=== PATIENT | female | born 1945 ===

== ENCOUNTER 2017-08-15 20:27 | Emergency (ER) | payer MEDICARE, MEDICAID ==
--- NOTE | 2017-08-15 22:19 | C.PDOC ---
History Of Present Illness Patient with a Hx of NIDDM presents to the ER with a complaint of a fever, cough , and right rib pain that worsens when coughing for the past few days that has been progressively worsening. Patient reports she has not taken anything for her symptoms. She is currently speaking in complete sentences, denies SOB, nausea, or vomiting. Time Seen by Provider: 08/15/17 22:18 Chief Complaint (Nursing): Fever History Per: Patient History/Exam Limitations: no limitations Onset/Duration Of Symptoms: Days Current Symptoms Are (Timing): Still Present Location Of Pain: None Sick Contacts (Context): None Associated Symptoms: Fever, Cough, Other (Right rib pain). denies: Nausea, Vomiting Ear Symptoms: Bilateral: None Recent travel outside of the [place]: No Past Medical History Reviewed: Historical Data, Nursing Documentation, Vital Signs Vital Signs: Last Vital Signs Temp 99 F 08/15/17 20:36 Pulse 113 H 08/15/17 20:36 Resp 18 08/15/17 20:36 BP 172/82 H 08/15/17 20:36 Pulse Ox 98 08/15/17 23:27 - Medical History PMH: Arthritis, HTN, Hypercholesterolemia Family History: States: No Known Family Hx - Social History Hx Alcohol Use: No Hx Substance Use: No - Immunization History Hx Tetanus Toxoid Vaccination: No Hx Influenza Vaccination: No Hx Pneumococcal Vaccination: No Review Of Systems Constitutional: Positive for: Fever Respiratory: Positive for: Cough. Negative for: Shortness of Breath Gastrointestinal: Negative for: Nausea, Vomiting Musculoskeletal: Positive for: Other (Right rib pain) Physical Exam - Physical Exam Appears: Non-toxic Skin: Warm, Dry Head: Normacephalic Oral Mucosa: Moist Chest: Symmetrical, No Tenderness Cardiovascular: Rhythm Regular Respiratory: No Rales, Rhonchi (Scattered), No Wheezing Gastrointestinal/Abdominal: Soft, No Tenderness Neurological/Psych: Oriented x3 ED Course And Treatment - Laboratory Results Result Diagrams: 08/15/17 22:44 08/15/17 22:44 ECG: Interpreted By Me, Viewed By Me ECG Rhythm: Sinus Rhythm (104), Nonspecific Changes O2 Sat by Pulse Oximetry: 98 Pulse Ox Interpretation: Normal Progress Note: Blood work, EKG, flu swab, CXR, and urinalysis ordered. Reevaluation Time: 23:40 Reassessment Condition: Improved Disposition Counseled Patient/Family Regarding: Studies Performed, Diagnosis, Need For Followup, Rx Given - Disposition Referrals: Leslie Rubio MD [Medical Doctor] - Disposition: HOME/ ROUTINE Disposition Time: 22:19 Condition: FAIR Additional Instructions: Please return if symptoms recur Prescriptions: Albuterol HFA [Ventolin HFA 90 mcg/actuation (8 g)] 2 puff IH [id number] #1 puff Ibuprofen [Motrin] 1 tab PO TID PRN #14 tab PRN Reason: Pain Instructions: Upper Respiratory Infection (ED) Forms: [employer] (Divehi) Print Language: CITIZEN OF [place] - Clinical Impression Clinical Impression: URI (upper respiratory infection) - Scribe Statement The provider has reviewed the documentation as recorded by the [facility] [place] All medical record entries made by the Scribe were at my direction and personally dictated by me. I have reviewed the chart and agree that the record accurately reflects my personal performance of the history, physical exam, medical decision making, and the department course for this patient. I have also personally directed, reviewed, and agree with the discharge instructions and disposition.
[2017-08-15 22:53] LABS: BASO # 0.1 K/uL (0.0-0.2); BASO % 1.5 % (0.0-2.0); EOS # 0.2 K/uL (0.0-0.7); EOS % 1.6 % (0.0-4.0); HEMOGLOBIN 13.6 g/dL (11.0-16.0); LYMPH # 3.4 K/uL (1.0-4.3); LYMPH % 34.5 % (20.0-40.0); MEAN CELL VOLUME 87.6 fL (81.0-99.0); MEAN CORPUSCULAR HEMOGLOBIN 29.3 pg (27.0-31.0); MEAN CORPUSCULAR HGB CONC 33.5 g/dL (33.0-37.0); MEAN PLATELET VOLUME 10.4 fL (7.2-11.7); MONO % 10.5 % (0.0-10.0); NEUT # 5.1 K/uL (1.8-7.0); NEUT % 51.9 % (50.0-75.0); RBC 4.64 Mil/uL (3.80-5.20); RED CELL DISTRIBUTION WIDTH 14.2 % (11.5-14.5); WHITE BLOOD COUNT 9.9 K/uL (4.8-10.8)
[2017-08-15 23:00] LABS: VENOUS BLOOD GAS BASE EXCESS 8.5 mmol/L (0.0-2.0); VENOUS BLOOD GAS PCO2 52 mmHg (40-60); VENOUS BLOOD GAS PO2 25 mm/Hg (30-55); VENOUS BLOOD PH 7.43 (7.32-7.43)
[2017-08-15 23:04] LABS: ALBUMIN 3.9 g/dL (3.5-5.0); ALT/SGPT 41 U/L (9-52); AST/SGOT 33 U/L (14-36); BLOOD UREA NITROGEN 16 mg/dL (7-17); CALCIUM 8.9 mg/dl (8.6-10.4); GFR AFRICAN-AMERICAN > 60; GFR NON-AFRICAN AMERICAN > 60
[2017-08-16 00:21] VITALS: BP 148/85; PULSE 84; RESP 20; TEMP 98.6; O2SAT 96
--- NOTE | 2017-08-16 11:49 | RAD ---
HISTORY: SOB COMPARISON: No prior. TECHNIQUE: Chest PA and lateral FINDINGS: LUNGS: No active pulmonary disease. PLEURA: No significant pleural effusion identified. No pneumothorax apparent. CARDIOVASCULAR: Normal. OSSEOUS STRUCTURES: No significant abnormalities. VISUALIZED UPPER ABDOMEN: Normal. OTHER FINDINGS: None. IMPRESSION: No active disease.
--- NOTE | 2017-08-18 07:10 | CARD ---
APPROVED REPORT EKG Measurement Heart [id number] OR [id number] [id number] <Conclusion> Sinus tachycardia Otherwise normal ECG
== END 2017-08-16 00:21 | disposition home or self-care (01) ==
LOC: C.ER 20:27
DX: J06.9 Acute upper respiratory infection, unspecified (principal)
CPT/HCPCS: 71046; 80053; 82803; 85025; 87804; 93005; 96374; 99284; J1885

== ENCOUNTER 2018-07-17 11:58 | Inpatient (IN) | payer MEDICARE, MEDICAID ==
[2018-07-17 12:08] VITALS: BMI 43.6
--- NOTE | 2018-07-17 12:09 | C.PDOC ---
History Of Present Illness 73 y/o female with history of HTN presents to ED with c/o left arm numbness developed 4 hours SEE WHEELER. Patient states she went to sleep at midnight without symptoms. This is the last time well. Patient reports 10 days of headache intermittently relieved with Tylenol. At ED patient denies motor weakness, facial droop, difficulty speaking, change in speech or any other complaints at this time. History Per: Patient History/Exam Limitations: no limitations Onset/Duration Of Symptoms: Hrs Current Symptoms Are (Timing): Still Present Past Medical History Reviewed: Historical Data, Nursing Documentation, Vital Signs - Medical History PMH: Arthritis, HTN, Hypercholesterolemia Surgical History: No Surg Hx Family History: States: No Known Family Hx - Social History Hx Alcohol Use: No Hx Substance Use: No - Immunization History Hx Tetanus Toxoid Vaccination: No Hx Influenza Vaccination: No Hx Pneumococcal Vaccination: No Review Of Systems Except As Marked, All Systems Reviewed And Found Negative. Cardiovascular: Negative for: Chest Pain Respiratory: Negative for: Cough, Shortness of Breath Neurological: Positive for: Numbness (left arm), Headache. Negative for: Change in Speech, Dizziness Physical Exam - Physical Exam Additional Physical Exam Comments: Constitutional: No acute distress. Head: Normocephalic. Atraumatic. Eyes: PERRL. ENT: Moist mucous membranes. Neck: Supple. Cardiovascular: Regular rate. Radial pulse 2+ bilaterally. Chest: No tenderness. Respiratory: Clear to auscultation bilaterally. GI: Soft. Nontender. Nondistended. Back: No CVA tenderness. Musculoskeletal: No tenderness or swelling of extremities. Skin: No rash. Neurologic: Alert, no focal deficit. 2-12 cranial nerves intact, L arm pronator drift, Sensation to light touch intact but subjectively decrease on left arm. ED Course And Treatment - Laboratory Results Result Diagrams: 07/17/18 12:25 07/17/18 12:25 O2 Sat by Pulse Oximetry: 100 (RA) Pulse Ox Interpretation: Normal NIHSS Stroke Scale - Date/Time Evaluation Performed Date Performed: 07/17/18 Time Performed: 12:10 When Was NIHSS Performed: Baseline - How Severe is the Stoke Level of Consciousness: 0=Alert LOC to Questions: 0=Both comments correct LOC to commands: 0=Obeys both correctly Best Gaze: 0=Normal Visual: 0=No visual loss Facial: 0=Normal Motor Arm - Left: 1=Drift noted before 10 sec Motor Arm - Right: 0=No drift Motor Leg - Left: 0=No drift Motor Leg - Right: 0=No drift Limb Ataxia: 0=Absent Sensory: 1=Mild to moderate loss Best Language: 0=No aphasia Dysarthia: 0=Normal articulation Extinction & Inattention (Neglect): 0=Normal, no object Score: 2 rTPA Inclusion/Exclusion - Refusal of Treatment Patient Refused Treatment: No - Inclusion Criteria for Altepase Patient is 18 years or Older: Yes Clinical DX Ischemic Stroke Cause Neurological Deficit: Yes Time of Onset Established Less Than 270 Mins Before TX Begin: No Risk/Benefit Discussed With Patient/Family Member Present: Yes Medical Decision Making Medical Decision Making: Plan: Code Stroke protocol, ECG, CXR ordered. Code stroke active 12:18pm CT Head w/o contrast (STROKE) IMPRESSION: No acute intracranial pathology identified. Incidental findings as above. Please note that MRI with diffusion imaging is more sensitive in the detection of acute ischemic event. Findings discussed with Dr. Hill on 07/17/18 at 12:37 p.m. CXR IMPRESSION: No active disease. No significant interval change compared to the prior examination(s). Dr. Matthew evaluated patient at bedside, recommends Plavix 300. Aspirin not ordered by me as patient reports anaphylaxis in the past. IVF at 100 cc/hr. Dr. Samaniego accepts patient to medical service. Disposition - Disposition Disposition: HOSPITALIZED Disposition Time: 12:20 Condition: GUARDED - POA Core Measure Indicators: Code Stroke - Clinical Impression Clinical Impression: CVA (cerebral vascular accident) - Scribe Statement The provider has reviewed the documentation as recorded by the [facility] [place] All medical record entries made by the [facility] were at my direction and personally dictated by me. I have reviewed the chart and agree that the record accurately reflects my personal performance of the history, physical exam, medical decision making, and the department course for this patient. I have also personally directed, reviewed, and agree with the discharge instructions and disposition.
[2018-07-17] MEDS ORDERED: Iodixanol 320 MG/ML 100 ML BOTTLE IV ONE (12:21)
[2018-07-17 12:36] LABS: BASO # 0.1 K/uL (0.0-0.2); BASO % 1.1 % (0.0-2.0); EOS # 0.1 K/uL (0.0-0.7); HEMOGLOBIN 13.8 g/dL (11.0-16.0); LYMPH # 2.6 K/uL (1.0-4.3); LYMPH % 28.1 % (20.0-40.0); MEAN CELL VOLUME 87.4 fL (81.0-99.0); MEAN CORPUSCULAR HEMOGLOBIN 28.4 pg (27.0-31.0); MEAN CORPUSCULAR HGB CONC 32.5 g/dL (33.0-37.0); MEAN PLATELET VOLUME 9.9 fL (7.2-11.7); MONO # 0.7 K/uL (0.0-0.8); MONO % 8.1 % (0.0-10.0); NEUT # 5.7 K/uL (1.8-7.0); NEUT % 61.7 % (50.0-75.0); NRBC % 0.1 % (0.0-2.0); RBC 4.85 Mil/uL (3.80-5.20); RED CELL DISTRIBUTION WIDTH 13.7 % (11.5-14.5); WHITE BLOOD COUNT 9.2 K/uL (4.8-10.8)
--- NOTE | 2018-07-17 12:47 | CT ---
Date of service: 07/17/2018 PROCEDURE: CT HEAD WITHOUT CONTRAST. HISTORY: Code Stroke, L arm numbness, headache COMPARISON: None available. TECHNIQUE: Axial computed tomography images were obtained through the head/brain without intravenous contrast. Radiation dose: Total exam DLP = 1183.74 mGy-cm. This CT exam was performed using one or more of the following dose reduction techniques: Automated exposure control, adjustment of the mA and/or kV according to patient size, and/or use of iterative reconstruction technique. FINDINGS: Streak artifact limits evaluation of the skull base. HEMORRHAGE: No intracranial hemorrhage. BRAIN: Diffuse atrophy with prominence of the ventricles and sulci noted. No mass effect or edema. Intracranial atherosclerosis. Scattered periventricular and subcortical white matter hypodensities, which are nonspecific, but often seen with chronic microvascular ischemic disease. Please note that MRI with diffusion imaging is more sensitive in the detection of acute ischemic event. VENTRICLES: No hydrocephalus. CALVARIUM: Unremarkable. PARANASAL SINUSES: Unremarkable as visualized. No significant inflammatory changes. MASTOID AIR CELLS: Unremarkable as visualized. No inflammatory changes. OTHER FINDINGS: None. IMPRESSION: No acute intracranial pathology identified. Incidental findings as above. Please note that MRI with diffusion imaging is more sensitive in the detection of acute ischemic event. Findings discussed with Dr. Hill on 07/17/18 at 12:37 p.m.
[2018-07-17 12:50] LABS: ALB/GLOB RATIO 1.2 (1.0-2.1); ALBUMIN 4.2 g/dL (3.5-5.0); ALT/SGPT 25 U/L (9-52); AST/SGOT 25 U/L (14-36); BLOOD UREA NITROGEN 15 mg/dL (7-17); CALCIUM 9.5 mg/dl (8.6-10.4); GFR NON-AFRICAN AMERICAN > 60; HDL CHOLESTEROL 56 mg/dL (30-70)
[2018-07-17 13:01] LABS: LDL CHOLESTEROL 128 mg/dL (0-129)
[2018-07-17] MEDS: Sodium Chloride 0.9% 1,000 ML IV SCH ×2 (13:15→21:25)
--- NOTE | 2018-07-17 13:33 | RAD ---
Date of service: 07/17/2018 HISTORY: Code Stroke COMPARISON: 08/15/2017 FINDINGS: LUNGS: No active pulmonary disease. PLEURA: No significant pleural effusion identified, no pneumothorax apparent. CARDIOVASCULAR: No radiographic findings to suggest acute or significant cardiovascular disease. Atherosclerotic calcifications identified primarily aortic arch. OSSEOUS STRUCTURES: No significant abnormalities. VISUALIZED UPPER ABDOMEN: Normal. OTHER FINDINGS: None. IMPRESSION: No active disease. No significant interval change compared to the prior examination(s).
--- NOTE | 2018-07-17 17:06 | CP.PCM.CON ---
History of Present Illness - History of Present Illness History of Present Illness: Neurology Consultation Note: Mrs. Styles is a 73-year-old woman, who was referred to me by the ED, with a past medical history of HTN, DM, HLD, and was last known normal last night, who woke up this morning with left hand weakness/numbness. Review of Systems - Constitutional Constitutional: As Per HPI - EENT Eyes: absent: As Per HPI, Blind Spots, Blurred Vision, Change in Vision, Decreased Night Vision, Diplopia, Discharge, Dry Eye, Exophthalmos, Floaters, Irritation, Itchy Eyes, Loss of Peripheral Vision, Pain, Photophobia, Requires Corrective Lenses, Sees Flashes, Spots in Vision, Tunnel Vision, Other Visual Disturbances, Loss of Vision, Other Ears: absent: As Per HPI, Decreased Hearing, Ear Discharge, Ear Pain, Tinnitus, Abnormal Hearing, Disequilibrium, Dizziness, Other Nose/Mouth/Throat: absent: As Per HPI, Epistaxis, Nasal Congestion, Nasal Discharge, Nasal Obstruction, Nasal Trauma, Nose Pain, Post Nasal Drip, Sinus Pain, Sinus Pressure, Bleeding Gums, Change in Voice, Dental Pain, Dry Mouth, Dysphagia, Halitosis, Hoarsness, Lip Swelling, Mouth Lesions, Mouth Pain, Odynophagia, Sore Throat, Throat Swelling, Tongue Swelling, Facial Pain, Neck Pain, Neck Mass, Other - Breasts Breasts: absent: As Per HPI, Change in Shape, Mass, Pain, Nipple Discharge, Nipple Inversion, Skin Changes, Swelling, Other - Cardiovascular Cardiovascular: absent: As Per HPI, Acrocyanosis, Chest Pain, Chest Pain at Rest, Chest Pain with Activity, Claudication, Diaphoresis, Dyspnea, Dyspnea on Exertion, Edema, Irregular Heart Rhythm, Pain Radiating to Arm/Neck/Jaw, Leg Edema, Leg Ulcers, Lightheadedness, Orthopnea, Palpitations, Paroxysmal Nocturnal Dyspnea, Pedal Edema, Radiating Pain, Rapid Heart Rate, Slow Heart Rate, Syncope, Other - Respiratory Respiratory: absent: As Per HPI, Cough, Dyspnea, Hemoptysis, Dyspnea on Exertion, Wheezing, Snoring, Stridor, Pain on Inspiration, Chest Congestion, Excessive Mucous Production, Change in Mucous Color, Pain with Coughing, Other - Gastrointestinal Gastrointestinal: absent: As Per HPI, Abdominal Pain, Belching, Bloating, Change in Bowel Habits, Change in Stool Character, Coffee Ground Emesis, Constipation, Cramping, Diarrhea, Dyspepsia, Dysphagia, Early Satiety, Excessive Flatus, Fecal Incontinence, Heartburn, Hematemesis, Hematochezia, Loose Stools, Melena, Nausea, Odynophagia, Temesmus, Vomiting, Other - Genitourinary Genitourinary: absent: As Per HPI, Change in Urinary Stream, Difficulty Urinating, Dysuria, Flank Pain, Hematuria, Pyuria, Nocturia, Urinary Incontinence, Urinary Frequency, Urinary Hesitance, Urinary Urgency, Voiding Freq/Small Amts, Freq UTI, Hx Renal/Bladder Calculi, Hx /Renal Surgery, Bladde r Distension, Other - Musculoskeletal Musculoskeletal: absent: As Per HPI, Abnormal Gait, Arthralgias, Atrophy, Back Pain, Deformity, Joint Swelling, Limited Range of Motion, Loss of Height, Muscle Cramps, Muscle Weakness, Myalgias, Neck Pain, Numbness, Radiating Pain into Limb, Stiffness, Tingling, Other - Integumentary Integumentary: absent: As Per HPI, Acne, Alopecia, Bleeding Lesions, Change in Hair, Change in Nails, Change in Pigmentation, Changing Lesions, Dry Skin, Erythema, Furuncle, Hirsutism, Lesions, New Lesions, Non-Healing Lesions, Photosensitivity, Pruritus, Rash, Skin Pain, Skin Ulcer, Sores, Striae, Swelling, Unusual Bruising, Wounds, Jaundice, Other - Neurological Neurological: As Per HPI - Endocrine Endocrine: absent: As Per HPI, Change in Body Appearance, Change in Libido, Cold Intolorance, Deepening of Voice, Excessive Sweating, Fatigue, Flushing, Heat Intolorance, Increase in Ring/Shoe/Hat Size, Palpitations, Polydipsia, Polyphagia, Polyuria, Other - Hematologic/Lymphatic Hematologic: absent: As Per HPI, Easy Bleeding, Easy Bruising, Lymphadenopathy, Other Past Patient History - Infectious Disease Hx of Infectious Diseases: None - Past Social History Smoking Status: Never Smoked - CARDIAC Hx Hypercholesterolemia: Yes Hx Hypertension: Yes - ENDOCRINE/METABOLIC Hx Endocrine Disorders: Yes Hx Diabetes Mellitus Type 2: Yes - MUSCULOSKELETAL/RHEUMATOLOGICAL Hx Arthritis: Yes - PSYCHIATRIC Hx Substance Use: No - SURGICAL HISTORY Hx Surgeries: Yes Other/Comment: left breast removal - ANESTHESIA Hx Anesthesia: Yes Hx Anesthesia Reactions: No Meds Allergies/Adverse Reactions: Allergies Allergy/AdvReac Type Severity Reaction Status Date / Time aspirin Allergy Verified 07/17/18 12:09 Penicillins Allergy Verified 07/17/18 12:09 morphine AdvReac Verified 05/13/17 04:26 - Medications Medications: Current Medications Sodium Chloride (Sodium Chloride 0.9%) 1,000 mls @ 100 mls/hr IV .Q10H DAMIEN Last Admin: 07/17/18 13:15 Dose: 100 mls/hr Physical Exam - Constitutional Appears: Well - Head Exam Head Exam: ATRAUMATIC, NORMAL INSPECTION, NORMOCEPHALIC - Eye Exam Eye Exam: EOMI, Normal appearance, PERRL Pupil Exam: NORMAL ACCOMODATION, PERRL - ENT Exam ENT Exam: Mucous Membranes Moist, Normal Exam - Neck Exam Neck exam: Positive for: Normal Inspection - Respiratory Exam Respiratory Exam: Clear to Auscultation Bilateral, NORMAL BREATHING PATTERN - Cardiovascular Exam Cardiovascular Exam: REGULAR RHYTHM - GI/Abdominal Exam GI & Abdominal Exam: Normal Bowel Sounds, Soft. absent: Tenderness - Rectal Exam Rectal Exam: Deferred - Extremities Exam Extremities exam: Positive for: normal inspection - Back Exam Back exam: NORMAL INSPECTION - Neurological Exam Neurological exam: Alert, CN II-XII Intact, Normal Gait, Oriented x3, Reflexes Normal Additional comments: Left arm pronator drift and minor sensory differences with NIHSS of 2. - Psychiatric Exam Psychiatric exam: Normal Affect, Normal Mood - Skin Skin Exam: Dry, Intact, Normal Color, Warm Results - Vital Signs Recent Vital Signs: Last Vital Signs Temp 98.5 F 07/17/18 12:10 Pulse 96 H 07/17/18 16:40 Resp 12 07/17/18 16:40 BP 180/86 H 07/17/18 16:40 Pulse Ox 98 07/17/18 16:40 - Labs Result Diagrams: 07/17/18 12:25 07/17/18 12:25 Labs: Laboratory Results - last 24 hr 07/17/18 07/17/18 07/17/18 12:25 12:25 12:25 WBC 9.2 RBC 4.85 Hgb 13.8 Hct 42.4 MCV 87.4 MCH 28.4 MCHC 32.5 L RDW 13.7 Plt Count 251 MPV 9.9 Neut % (Auto) 61.7 Lymph % (Auto) 28.1 Sumner % (Auto) 8.1 Eos % (Auto) 1.0 Baso % (Auto) 1.1 Neut # (Auto) 5.7 Lymph # (Auto) 2.6 Sumner # (Auto) 0.7 Eos # (Auto) 0.1 Baso # (Auto) 0.1 PT 11.0 INR 1.0 APTT 32 Sodium 135 Potassium 4.2 Chloride 99 Carbon Dioxide 25 Anion Gap 15 BUN 15 Creatinine 0.6 L Est GFR ( Amer) > 60 Est GFR (Non-Af Amer) > 60 Random Glucose 279 H Hemoglobin A1c Calcium 9.5 Total Bilirubin 0.5 AST 25 ALT 25 Alkaline Phosphatase 95 Troponin I < 0.0120 Total Protein 7.7 Albumin 4.2 Globulin 3.5 Albumin/Globulin Ratio 1.2 Triglycerides 175 H Cholesterol 219 H LDL Cholesterol Direct 128 HDL Cholesterol 56 Blood Type Antibody Screen 07/17/18 07/17/18 12:25 12:26 WBC RBC Hgb Hct MCV MCH MCHC RDW Plt Count MPV Neut % (Auto) Lymph % (Auto) Sumner % (Auto) Eos % (Auto) Baso % (Auto) Neut # (Auto) Lymph # (Auto) Sumner # (Auto) Eos # (Auto) Baso # (Auto) PT INR APTT Sodium Potassium Chloride Carbon Dioxide Anion Gap BUN Creatinine Est GFR ( Amer) Est GFR (Non-Af Amer) Random Glucose Hemoglobin A1c 10.5 H Calcium Total Bilirubin AST ALT Alkaline Phosphatase Troponin I Total Protein Albumin Globulin Albumin/Globulin Ratio Triglycerides Cholesterol LDL Cholesterol Direct HDL Cholesterol Blood Type O POSITIVE Antibody Screen Negative Assessment & Plan (1) CVA (cerebral vascular accident) Assessment and Plan: She is not a candidate for IV tPA due to being outside the 4.5 hour time window and her symptoms are minor. She may have had a lacunar infarct involving right basal ganglia. I recommend the followin. Telemetry. 2. MRI Brain without contrast and MRA head/neck without contrast. 3. Echocardiogram 4. Check hemoglobin A-1 C, lipid panel, ESR, CRP, MELISSA, B12, folate, TSH, vitamin D levels. 5. Aspirin 81 mg daily and load with Plavix 300 mg now. 6. Q 2 hour neuro-checks. 7. Statin for goal LDL less than 70. 8. Permissive hypertension, do not treat blood pressure less than 220/110 (may start to normalize 48-hours after symptom onset). 9. IV fluids normal saline at 100 mL per hour. Please do not hesitate to call back with any new developments, data updates or questions. Thank you for the opportunity to participate in the care of this patient. Status: Acute
--- NOTE | 2018-07-17 18:50 | CP.PCM.HP ---
History of Present Illness - History of Present Illness History of Present Illness: COMPREHENSIVE HISTORY & PHYSICAL EXAM HPI 73 years or woman with history of hypertension admitted with left upper extremity weakness. Patient went to bed last night and apparently healthy status woke up this morning with unable to move her left upper extremity. Patient also has a slight slurring of the speech according to the daughter. Patient was brought to the emergency room there was a slight weakness of the left upper extremity with no other deficits. As patient had passed the window of treatment for anti- thrombolytic patient was given regular anticoagulation. CAT scan of the head did not reveal any fresh infarct or bleed. Patient been complaining of a headache for the last 3 days. Patient has mul tiple medications at home and takes only a few of them. Patient has a history of hypertension diabetes and also had a similar neurological deficit was admitted in the hospital and has fully recovered. PAST HIST. PERSONAL HIST: Smoking. N Alcohol. N Allergy N Travel_- . FAMILY HIST : ROS : Constitutional: Negative for weight change, chills, night sweats, fatigue and u rama of assist device. Eyes: Negative for redness, swelling, itching, discharge, vision changes, blurry vision, double vision, glaucoma, cataracts, Ears: Negative for hearing loss, ringing, , tinnitus, vertigo Nose: Negative for rhinorrhea, stuffiness, sniffing, itching, postnasal drip, discoloration, nasal congestion and epistaxis. Throat: Negative for throat clearing, sore throat, hoarseness, difficulty swallowing and difficulty speaking. Respiratory: Negative for cough, chest tightness, sputum or phlegm, chronic cough, hemoptysis, wheezing, snoring at night, pleuritic chest pain and daytime somnolence. Cardiovascular: Negative for chest pain, palpitations, orthopnea, PND, Edema of legs, leg cramps, angina, claudication, , irregular heartbeat, Neurology: Negative for irritability, , seizures, tremors, migraines, slurred speech, syncope, memory loss, mood changes, recurrent headaches Gastrointestinal: Negative for difficulty swallowing, diarrhea, constipation, black stools, rectal bleeding, nausea, flatulence, reflux, poor appetite, changes in bowel habits, abdominal pain Genitourinary: Negative for frequent urination, hematuria, discharge, incontinence, urinary retention, frequent UTI, Psychiatric: Negative for depression, anxiety/panic, suicidal tendencies, Musculoskeletal: Negative for swollen joints, back pain, , neck pain, morning stiffness of joints, . Skin: Negative for rash, ulcers, itching, dry skin and pigmented lesions. P/E: Constitutional: Appears stated age and in no apparent distress. Head: Normocephalic. Ears: External ear canals patent without inflammation. Tympanic membranes intact with normal light reflex and landmark. Eyes: Pupils are central, bilaterally equal, symmetrical and reacts to light with normal movements and no icterus or pallor. Nose: External nares are patent. Mucosa is pink Mouth-Throat: Good general appearance and condition. No post-pharyngeal/oropharyngeal erythema and tonsillar hypertrophy. Good dental hygiene. Neck-Lymphatic: Neck is supple with normal ROM, no thyromegaly, lymph nodes or masses. JVD is normal with no carotid bruit. Lungs: Clear to percussion and auscultation with bilateral normal air entry. Cardiovascular: S1 and S2 are normal with no murmurs, gallops and rub. GI Exam: No hepatomegaly. Abdomen is soft and non-tender. No Organomegaly , masses or hernias are evident and bowel sounds are normal and active. Neurology: Higher function and all cranial nerves intact, sensory deficit. Superficial and deep reflexes are normal with downwards planters. No cerebellar deficit with normal gait. Mild left upper ext weakness Musculoskeletal: No tender spots with normal curvature of the spine with no swelling or restricted ROM of the small and large joints. Extremities: Homans sign absent. Intact pulses with no pitting edema, calf tenderness or skin color changes. Skin: No rash, eruptions or abnormal skin pigmentation LAB/RADIOLOGY: ASSESMENT : R. CVA HTN TYPE 2 DM PLAN. SEE ORDRES Present on Admission - Present on Admission Any Indicators Present on Admission: No Past Patient History - Infectious Disease Hx of Infectious Diseases: None - Past Social History Smoking Status: Never Smoked - CARDIAC Hx Hypercholesterolemia: Yes Hx Hypertension: Yes - ENDOCRINE/METABOLIC Hx Endocrine Disorders: Yes Hx Diabetes Mellitus Type 2: Yes - MUSCULOSKELETAL/RHEUMATOLOGICAL Hx Arthritis: Yes - PSYCHIATRIC Hx Substance Use: No - SURGICAL HISTORY Hx Surgeries: Yes Other/Comment: left breast removal - ANESTHESIA Hx Anesthesia: Yes Hx Anesthesia Reactions: No Meds Allergies/Adverse Reactions: Allergies Allergy/AdvReac Type Severity Reaction Status Date / Time aspirin Allergy Verified 07/17/18 12:09 Penicillins Allergy Verified 07/17/18 12:09 morphine AdvReac Verified 05/13/17 04:26 Results - Vital Signs Recent Vital Signs: Last Vital Signs Temp 98.5 F 07/17/18 12:10 Pulse 90 07/17/18 18:25 Resp 18 07/17/18 18:25 BP 171/75 H 07/17/18 18:25 Pulse Ox 98 07/17/18 18:25 - Labs Result Diagrams: 07/17/18 12:25 07/17/18 12:25 Labs: Laboratory Results - last 24 hr 07/17/18 07/17/18 07/17/18 12:25 12:25 12:25 WBC 9.2 RBC 4.85 Hgb 13.8 Hct 42.4 MCV 87.4 MCH 28.4 MCHC 32.5 L RDW 13.7 Plt Count 251 MPV 9.9 Neut % (Auto) 61.7 Lymph % (Auto) 28.1 [place] % (Auto) 8.1 Eos % (Auto) 1.0 Baso % (Auto) 1.1 Neut # (Auto) 5.7 Lymph # (Auto) 2.6 [place] # (Auto) 0.7 Eos # (Auto) 0.1 Baso # (Auto) 0.1 PT 11.0 INR 1.0 APTT 32 Sodium 135 Potassium 4.2 Chloride 99 Carbon Dioxide 25 Anion Gap 15 BUN 15 Creatinine 0.6 L Est GFR ( Amer) > 60 Est GFR (Non-Af Amer) > 60 Random Glucose 279 H Hemoglobin A1c Calcium 9.5 Total Bilirubin 0.5 AST 25 ALT 25 Alkaline Phosphatase 95 Troponin I < 0.0120 Total Protein 7.7 Albumin 4.2 Globulin 3.5 Albumin/Globulin Ratio 1.2 Triglycerides 175 H Cholesterol 219 H LDL Cholesterol Direct 128 HDL Cholesterol 56 Blood Type Antibody Screen 07/17/18 07/17/18 12:25 12:26 WBC RBC Hgb Hct MCV MCH MCHC RDW Plt Count MPV Neut % (Auto) Lymph % (Auto) [place] % (Auto) Eos % (Auto) Baso % (Auto) Neut # (Auto) Lymph # (Auto) [place] # (Auto) Eos # (Auto) Baso # (Auto) PT INR APTT Sodium Potassium Chloride Carbon Dioxide Anion Gap BUN Creatinine Est GFR ( Amer) Est GFR (Non-Af Amer) Random Glucose Hemoglobin A1c 10.5 H Calcium Total Bilirubin AST ALT Alkaline Phosphatase Troponin I Total Protein Albumin Globulin Albumin/Globulin Ratio Triglycerides Cholesterol LDL Cholesterol Direct HDL Cholesterol Blood Type O POSITIVE Antibody Screen Negative
[2018-07-17] MEDS: (Novolin R) Insulin Human Regular 100 units/ml vial SC SCH (21:11)
[2018-07-18] MEDS: (Novolin R) Insulin Human Regular 100 units/ml vial SC SCH ×4 (08:35→21:52)
[2018-07-18] MEDS ORDERED: Gadodiamide 287 mg/ml 20 ml IV ONE (09:22)
[2018-07-18] MEDS ORDERED: Home Med 1 UNIT (Linagliptin [Tradjenta] 5 MG) PO SCH (10:00)
[2018-07-18] MEDS: GlipiZIDE 10 mg SR Tab PO SCH ×2 (10:26→18:57)
--- NOTE | 2018-07-18 10:36 | MRI ---
Date of service: 07/18/2018 PROCEDURE: MRI BRAIN WITH AND WITHOUT CONTRAST HISTORY: STROKE COMPARISON: None available. TECHNIQUE: Multiplanar, multisequence MR images of the brain were obtained with and without intravenous contrast enhancement. FINDINGS: HEMORRHAGE: No acute parenchymal, subarachnoid or extra-axial hemorrhage. DWI: There are-subacute infarct changes seen in the subcortical and cortical regions of the right posterior temporoparietal as well as right superior posterior frontoparietal regions near the vertex.. Few faint areas of scattered cortical surface contrast enhancement about these infarct changes are also felt to be present. No significant mass-effect BRAIN PARENCHYMA: Mild chronic periventricular white matter ischemic changes are also seen extending peripherally into deep. ENHANCEMENT: As above. No enhancing parenchymal nor extra-axial masses.. VENTRICLES: No obstructive hydrocephalus. CRANIUM: Unremarkable. ORBITS: Orbits and contents grossly unremarkable.. PARANASAL SINUSES/MASTOIDS: Frontal sinuses are slightly underpneumatized hypoplastic unchanged from prior study. VASCULAR SYSTEM: Visualized major vascular flow voids at skull base patent. OTHER FINDINGS: None . IMPRESSION: There are small acute-subacute subcortical and cortical infarct changes seen in the right posterior temporoparietal watershed zone and superiorly in the right posterior frontoparietal region near the vertex. There also appears to be some minimal early cortical surface enhancement along these infarct changes.. No acute intracranial hemorrhage. Mild chronic white matter ischemic changes with suspected minor chronic brainstem ischemic changes as well. Note these findings were discussed with 6 tower Nurse Cardano at approximately 10:25 a.m. with written down and read back verification.
--- NOTE | 2018-07-18 11:51 | CARD ---
APPROVED REPORT Date of service: 07/17/2018 EKG Measurement Heart [id number] <Conclusion> Sinus rhythm with occasional premature ventricular complexes Otherwise normal ECG
--- NOTE | 2018-07-18 14:36 | CP.PCM.PN ---
Subjective - Date & Time of Evaluation Date of Evaluation: 07/18/18 Time of Evaluation: 14:33 - Subjective Subjective: CHIEF COMPLAINTS TODAY : Minimal weakness on the left upper extremities speech is normal alert oriented. ROS. HEENT : N. Resp : No cough, wheezing ,pleuritic CP ,or hemoptysis Cardio : No anginal CP, PND, orthopnea, palpitation GI : No abd.pain, n/v ,diarrhea or GI bleeding . FINAL TESTER : Left upper extremity numbness Musculoskel : No joint swelling , Derm : No rash Psych : Normal affect. Ext : No swelling ,calf pain PE. Pt. is alert awake in no distress. V.S As noted in the chart Head ,ear nose,throat and eyes : Normal. Neck : Supple with normal carotids. Lungs: Clear air entry. Heart : S1 & S2 normal with S4. No murmur. Abd : Soft non tender with normal bowel sounds. Neuro : Higher functions are normal and no facial nerve palsy. Left upper extremity shows mild weakness. Reflexes are normal Ext : No edema with intact pulses.Non tender calves Derm : No rashes or decubitus ulcer. LABS/RADIOLOGY: MRI shows acute and subacute infarct in the right cerebral hem isphere. Carotid Doppler shows right proximal internal carotid artery more than 75% lesion ASSESSMENT/PLAN : Continue present medications will add lisinopril for blood pressure. Vascular evaluation for left carotid endarterectomy Objective - Vital Signs/Intake and Output Vital Signs (last 24 hours): Temp Pulse Resp BP Pulse Ox 98.1 F 96 H 20 170/96 H 95 07/18/18 08:06 07/18/18 12:24 07/18/18 08:06 07/18/18 08:06 07/18/18 08:06 Intake and Output: 07/18/18 07/18/18 11:59 23:59 Intake Total 800 Balance 800 - Medications Medications: Current Medications Acetaminophen (Tylenol 325mg Tab) 650 mg PO Q4 PRN PRN Reason: Headache Last Admin: 07/17/18 21:24 Dose: 650 mg Aspirin (Ecotrin) 81 mg PO DAILY [facility] Last Admin: 07/18/18 12:49 Dose: 81 mg Clopidogrel Bisulfate (Plavix) 75 mg PO DAILY [facility] Last Admin: 07/18/18 12:49 Dose: 75 mg Ezetimibe (Zetia) 10 mg PO DAILY [facility] Last Admin: 07/18/18 10:26 Dose: 10 mg Glipizide (Glucotrol Xl) 10 mg PO BID [facility] Last Admin: 07/18/18 10:26 Dose: 10 mg Home Med (Linagliptin [Tradjenta]) 5 mg PO DAILY [facility] Sodium Chloride (Sodium Chloride 0.9%) 1,000 mls @ 100 mls/hr IV .Q10H [facility] Last Admin: 07/17/18 21:25 Dose: 100 mls/hr Insulin Human Regular (Novolin R) 0 unit SC ACHS [facility]; Protocol Last Admin: 07/18/18 12:44 Dose: 4 u Metformin HCl (Glucophage) 1,000 mg PO BIDCC [facility] Last Admin: 07/18/18 10:26 Dose: 1,000 mg Rosuvastatin Calcium (Crestor) 10 mg PO HS [facility] Last Admin: 07/17/18 21:23 Dose: 10 mg - Labs Labs: 07/17/18 12:25 07/17/18 12:25 PT 11.0 SECONDS (9.7-12.2) 07/17/18 12:25 INR 1.0 07/17/18 12:25 APTT 32 SECONDS (21-34) 07/17/18 12:25
--- NOTE | 2018-07-18 16:16 | CP.PCM.CON ---
History of Present Illness - History of Present Illness History of Present Illness: Vascular Surgery Consult note. Dr. Resendez service. CC: Carotid Stenosis 73yo F with PMH of HTN and DM, came to [facility] ED yesterday with complaint of LUE weakness and slurred speech. Reported her hands felt numb yesterday after waking up. She has been having symptoms of headache for past few days. She had one previous episode of headache years ago, for which she was admitted to [facility] [place] and received treatment. 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 She denies chest pain, palpitations, no nausea, vomiting, abdominal pain, diarrhea or constipation. PMHx: DM and HTN PSHx: Denies Social Hx: Denies tobacco, alcohol, and recreational drugs, currently lives with granddaughter Family Hx: Denies Allergies: Penicillin and ibuprofen Review of Systems - Review of Systems All systems: reviewed and no additional remarkable complaints except - Constitutional Constitutional: absent: Chills, Fever - EENT Eyes: absent: Blurred Vision, Change in Vision Ears: absent: Decreased Hearing Nose/Mouth/Throat: absent: Nasal Congestion - Cardiovascular Cardiovascular: absent: Chest Pain - Respiratory Respiratory: absent: Cough, Dyspnea - Gastrointestinal Gastrointestinal: absent: Abdominal Pain, Nausea, Vomiting - Genitourinary Genitourinary: absent: Difficulty Urinating - Integumentary Integumentary: absent: Erythema - Neurological Neurological: Focal Weakness, Headaches, Weakness Past Patient History - Infectious Disease Hx of Infectious Diseases: None - Past Medical History & Family History Past Medical History?: Yes Past Family History: Reviewed and not pertinent - Past Social History Smoking Status: Never Smoked - CARDIAC Hx Hypercholesterolemia: Yes Hx Hypertension: Yes - ENDOCRINE/METABOLIC Hx Endocrine Disorders: Yes Hx Diabetes Mellitus Type 2: Yes - MUSCULOSKELETAL/RHEUMATOLOGICAL Hx Arthritis: Yes - PSYCHIATRIC Hx Psychophysiologic Disorder: No Hx Substance Use: No - SURGICAL HISTORY Hx Surgeries: Yes Other/Comment: left breast removal - ANESTHESIA Hx Anesthesia: Yes Hx Anesthesia Reactions: No Meds Allergies/Adverse Reactions: Allergies Allergy/AdvReac Type Severity Reaction Status Date / Time aspirin Allergy Verified 07/17/18 12:09 Penicillins Allergy Verified 07/17/18 12:09 morphine AdvReac Verified 05/13/17 04:26 - Medications Medications: Current Medications Acetaminophen (Tylenol 325mg Tab) 650 mg PO Q4 PRN PRN Reason: Headache Last Admin: 07/18/18 14:43 Dose: 650 mg Aspirin (Ecotrin) 81 mg PO DAILY [facility] Last Admin: 07/18/18 12:49 Dose: 81 mg Clopidogrel Bisulfate (Plavix) 75 mg PO DAILY [facility] Last Admin: 07/18/18 12:49 Dose: 75 mg Ezetimibe (Zetia) 10 mg PO DAILY [facility] Last Admin: 07/18/18 10:26 Dose: 10 mg Glipizide (Glucotrol Xl) 10 mg PO BID [facility] Last Admin: 07/18/18 10:26 Dose: 10 mg Home Med (Linagliptin [Tradjenta]) 5 mg PO DAILY [facility] Sodium Chloride (Sodium Chloride 0.9%) 1,000 mls @ 100 mls/hr IV .Q10H [facility] Last Admin: 07/17/18 21:25 Dose: 100 mls/hr Insulin Human Regular (Novolin R) 0 unit SC ACHS [facility]; Protocol Last Admin: 07/18/18 12:44 Dose: 4 u Lisinopril (Zestril) 20 mg PO DAILY [facility] Last Admin: 07/18/18 14:51 Dose: 20 mg Metformin HCl (Glucophage) 1,000 mg PO BIDCC [facility] Last Admin: 07/18/18 10:26 Dose: 1,000 mg Rosuvastatin Calcium (Crestor) 10 mg PO HS [facility] Last Admin: 07/17/18 21:23 Dose: 10 mg Physical Exam - Constitutional Appears: Well, Non-toxic, No Acute Distress - Head Exam Head Exam: ATRAUMATIC, NORMAL INSPECTION, NORMOCEPHALIC - Eye Exam Eye Exam: EOMI, Normal appearance. absent: Scleral icterus - ENT Exam ENT Exam: Mucous Membranes Moist, Normal Exam - Neck Exam Neck exam: Positive for: Normal Inspection Additional comments: No audible bruits - Respiratory Exam Respiratory Exam: NORMAL BREATHING PATTERN. absent: Accessory Muscle Use, Respiratory Distress - Cardiovascular Exam Cardiovascular Exam: RRR. absent: JVD - GI/Abdominal Exam GI & Abdominal Exam: Soft. absent: Bruit, Distended, Firm, Guarding, Rebound, Rigid, Tenderness - Extremities Exam Extremities exam: Positive for: normal inspection. Negative for: calf tenderness - Back Exam Back exam: NORMAL INSPECTION - Neurological Exam Neurological exam: Alert, Oriented x3 - Psychiatric Exam Psychiatric exam: Normal Affect, Normal Mood - Skin Skin Exam: Dry, Intact, Normal Color, Warm Results - Vital Signs Recent Vital Signs: Last Vital Signs Temp 98.1 F 07/18/18 08:06 Pulse 96 H 07/18/18 12:24 Resp 20 07/18/18 08:06 BP 170/96 H 07/18/18 08:06 Pulse Ox 95 07/18/18 08:06 - Labs Result Diagrams: 07/17/18 12:25 07/17/18 12:25 Labs: Laboratory Results - last 24 hr 07/17/18 07/17/18 07/18/18 12:06 21:05 06:30 POC Glucose (mg/dL) 286 H 271 H 215 H 07/18/18 11:42 POC Glucose (mg/dL) 256 H Assessment & Plan - Assessment and Plan (Free Text) Assessment: 73yo F with Right proximal carotid stenosis - Carotid Duplex US noted Plan: - Continue medical management - f/u CT Angio of neck as ordered - Possible candidate for carotid endarterectomy - further recs after we follow up studies as ordered Further recs as per Dr. Mal Leung PGY2 Surgery
[2018-07-18] MEDS ORDERED: Magnesium Sulfate 1 gm in D5W 1 GM/100 ML BAG IVPB ONE (17:40)
--- NOTE | 2018-07-18 17:41 | CP.PCM.PN ---
<Estrella Cardenas - Last Filed: 07/18/18 22:11> Subjective - Date & Time of Evaluation Date of Evaluation: 07/18/18 Time of Evaluation: 17:00 - Subjective Subjective: Neurology Consultation Follow-Up Note: Mrs. Styles was evaluated today at bedside with Dr. Matthew. Family at bedside. She is still complaining of left arm weakness and a headache that she describes is "10/10". She denies having palpitation or shortness of breath prior to her having left arm weakness/numbness yesterday. She currently denies dizziness, visual changes, chest pain, shortness of breath, n/v/d. Objective - Vital Signs/Intake and Output Vital Signs (last 24 hours): Temp Pulse Resp BP Pulse Ox 98.1 F 96 H 20 170/96 H 95 07/18/18 08:06 07/18/18 12:24 07/18/18 08:06 07/18/18 08:06 07/18/18 08:06 Intake and Output: 07/18/18 07/18/18 06:59 18:59 Intake Total 800 Balance 800 - Medications Medications: Current Medications Acetaminophen (Tylenol 325mg Tab) 650 mg PO Q4 PRN PRN Reason: Headache Last Admin: 07/18/18 14:43 Dose: 650 mg Aspirin (Ecotrin) 81 mg PO DAILY [facility] Last Admin: 07/18/18 12:49 Dose: 81 mg Clopidogrel Bisulfate (Plavix) 75 mg PO DAILY [facility] Last Admin: 07/18/18 12:49 Dose: 75 mg Ezetimibe (Zetia) 10 mg PO DAILY [facility] Last Admin: 07/18/18 10:26 Dose: 10 mg Glipizide (Glucotrol Xl) 10 mg PO BID [facility] Last Admin: 07/18/18 10:26 Dose: 10 mg Home Med (Linagliptin [Tradjenta]) 5 mg PO DAILY [facility] Sodium Chloride (Sodium Chloride 0.9%) 1,000 mls @ 100 mls/hr IV .Q10H [facility] Last Admin: 07/17/18 21:25 Dose: 100 mls/hr Insulin Human Regular (Novolin R) 0 unit SC ACHS [facility]; Protocol Last Admin: 07/18/18 12:44 Dose: 4 u Lisinopril (Zestril) 20 mg PO DAILY [facility] Last Admin: 07/18/18 14:51 Dose: 20 mg Metformin HCl (Glucophage) 1,000 mg PO BIDCC [facility] Last Admin: 07/18/18 10:26 Dose: 1,000 mg Rosuvastatin Calcium (Crestor) 10 mg PO HS [facility] Last Admin: 07/17/18 21:23 Dose: 10 mg - Labs Labs: 07/17/18 12:25 07/17/18 12:25 PT 11.0 SECONDS (9.7-12.2) 07/17/18 12:25 INR 1.0 07/17/18 12:25 APTT 32 SECONDS (21-34) 07/17/18 12:25 - Constitutional Appears: Well, Non-toxic, No Acute Distress - Head Exam Head Exam: ATRAUMATIC, NORMAL INSPECTION, NORMOCEPHALIC - Eye Exam Eye Exam: EOMI, Normal appearance - ENT Exam ENT Exam: Mucous Membranes Moist - Neck Exam Neck Exam: Full ROM, Normal Inspection - Respiratory Exam Respiratory Exam: NORMAL BREATHING PATTERN - Extremities Exam Extremities Exam: Normal Inspection Additional comments: decreased ROM noted to LUE - Neurological Exam Neurological Exam: Alert, Awake, CN II-XII Intact, Oriented x3, Reflexes Normal Neuro motor strength exam: Left Upper Extremity: 3, Right Upper Extremity: 4 Additional comments: Speech clear and fluid; aao +pronator drift to LUE weakness noted 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 There also appears to be some minimal early cortical surface enhancement along these infarct changes.. No acute intracranial hemorrhage. Mild chronic white matter ischemic changes with suspected minor chronic brainstem ischemic changes as well. -CT Head (07/17/18): No acute intracranial pathology identified. -Mag sulfate 1gm IV and Decadron 10mg IV both x1 dose for h/a relief -CTA Head and Neck done--results pending -ECHO pending -Carotid Doppler done--prelim results show severe right proximal carotid stenosis---Dr. Resendez consulted; pt possible endarterectomy candidate per surgical team's notes. -PT/OT/SL -Continue asa, plavx, statin -SCD's -Notify neuro team of acute changes. -We will continue to follow the pt. Discussed with Dr. Matthew Status: Acute <Demian Matthew - Last Filed: 07/26/18 18:24> Objective - Vital Signs/Intake and Output Vital Signs (last 24 hours): Temp Pulse Resp BP Pulse Ox 98.8 F 90 17 158/75 H 96 07/26/18 12:00 07/26/18 12:00 07/26/18 12:00 07/26/18 12:00 07/26/18 12:00 Intake and Output: 07/26/18 07/26/18 06:59 18:59 Intake Total 240 200 Output Total 250 450 Balance -10 -250 - Labs Labs: 07/26/18 06:09 07/26/18 06:09 PT 11.8 SECONDS (9.7-12.2) 07/23/18 07:20 INR 1.1 07/23/18 07:20 APTT 32 SECONDS (21-34) 07/23/18 07:20 Assessment and Plan (1) CVA (cerebral vascular accident) Status: Acute Attending/Attestation - Attestation I have personally seen and examined this patient.: Yes I have fully participated in the care of the patient.: Yes I have reviewed all pertinent clinical information, including history, physical exam and plan: Yes Notes (Text): 07/26/18 18:24 I agree with the assessment and plan. Will continue current management.
[2018-07-18] MEDS ORDERED: Iodixanol 320 MG/ML 100 ML BOTTLE IV ONE (17:50)
[2018-07-18] MEDS: Sodium Chloride 0.9% 1,000 ML IV SCH (19:02)
[2018-07-19] MEDS: Sodium Chloride 0.9% 1,000 ML IV SCH (05:30)
[2018-07-19] MEDS: (Novolin R) Insulin Human Regular 100 units/ml vial SC SCH ×4 (08:32→22:45)
[2018-07-19] MEDS: GlipiZIDE 10 mg SR Tab PO SCH ×2 (11:02→18:00)
--- NOTE | 2018-07-19 12:10 | CT ---
Date of service: 07/18/2018 PROCEDURE: CT Angiography of the neck with contrast HISTORY: eval R ICA stenosis COMPARISON: Carotid duplex Doppler ultrasound from 07/18/2018 TECHNIQUE: Contiguous axial images of the neck were obtained from the level of the skull-base to the superior mediastinum in the arteriographic phase of enhancement. Coronal and sagittal reformats or also generated. IV contrast dose: 100 cc Visipaque 320 Radiation dose: Total exam DLP = 552.96 mGy-cm. This CT exam was performed using one or more of the following dose reduction techniques: Automated exposure control, adjustment of the mA and/or kV according to patient size, and/or use of iterative reconstruction technique. FINDINGS: There is a 2 vessel aortic arch with common origin of the innominate and left common carotid arteries. There are atherosclerotic calcifications at the origin of the left subclavian and left vertebral artery without significant luminal narrowing. RIGHT CAROTID ARTERIES: There are extensive calcified atherosclerotic plaques and noncalcified soft plaques in the proximal internal carotid artery. Common Carotid Artery: Normal. Carotid Bifurcation: Normal. Internal Carotid Artery:There is severe hemodynamically significant greater than 70% stenosis in the proximal internal carotid artery. External Carotid Artery (proximal branches): Normal. LEFT CAROTID ARTERIES: Common Carotid Artery: Normal. Mild soft plaques. No stenosis. Carotid Bifurcation: Normal. Internal Carotid Artery:Normal. There are mild eccentric soft plaques in the proximal internal carotid artery without hemodynamically significant stenosis. External Carotid Artery (proximal branches): Normal. VERTEBRAL ARTERIES: Right Vertebral Artery: Normal. The right vertebral artery is hypoplastic, an anatomic variant. Left Vertebral Artery: Normal. OTHER FINDINGS: There is an enlarged multinodular thyroid gland with asymmetric enlargement of the left thyroid lobe. Dedicated thyroid ultrasound is recommended for complete evaluation. IMPRESSION: 1. Heavy calcified and noncalcified atherosclerotic plaques in the proximal right internal carotid artery. Severe greater than 70% hemodynamically significant stenosis in the proximal right internal carotid artery. 2. No evidence of significant stenosis in the left internal carotid artery. 3. Patent bilateral vertebral arteries. The right vertebral artery is hypoplastic, an anatomic variant. A preliminary report was provided by [email or web address].
--- NOTE | 2018-07-19 12:50 | CP.PCM.PN ---
Subjective - Date & Time of Evaluation Date of Evaluation: 07/19/18 Time of Evaluation: 16:14 - Subjective Subjective: Neurology Consultation Follow-Up Note: Mrs. Styles was evaluated today at bedside.. Granddaughter at bedside. She is still complaining of left arm weakness and a headache but admits that both symptoms are improving compared to yesterday. She currently denies dizziness, visual changes, chest pain, shortness of breath, n/v/d. Objective - Vital Signs/Intake and Output Vital Signs (last 24 hours): Temp Pulse Resp BP Pulse Ox 98.0 F 88 20 149/81 97 07/19/18 07:57 07/19/18 11:14 07/19/18 07:57 07/19/18 07:57 07/19/18 07:57 Intake and Output: 07/19/18 07/19/18 06:59 18:59 Intake Total 800 Balance 800 - Medications Medications: Current Medications Acetaminophen (Tylenol 325mg Tab) 650 mg PO Q4 PRN PRN Reason: Headache Last Admin: 07/18/18 21:43 Dose: 650 mg Aspirin (Ecotrin) 81 mg PO DAILY [facility] Last Admin: 07/19/18 11:02 Dose: 81 mg Clopidogrel Bisulfate (Plavix) 75 mg PO DAILY [facility] Last Admin: 07/19/18 11:03 Dose: 75 mg Ezetimibe (Zetia) 10 mg PO DAILY [facility] Last Admin: 07/19/18 11:04 Dose: 10 mg Glipizide (Glucotrol Xl) 10 mg PO BID [facility] Last Admin: 07/19/18 11:02 Dose: 10 mg Home Med (Linagliptin [Tradjenta]) 5 mg PO DAILY [facility] Sodium Chloride (Sodium Chloride 0.9%) 1,000 mls @ 100 mls/hr IV .Q10H [facility] Last Admin: 07/19/18 05:30 Dose: 100 mls/hr Insulin Human Regular (Novolin R) 0 unit SC ACHS [facility]; Protocol Last Admin: 07/19/18 12:25 Dose: 4 u Lisinopril (Zestril) 20 mg PO DAILY [facility] Last Admin: 07/19/18 11:03 Dose: 20 mg [facility] Last Admin: 07/19/18 08:37 Dose: 1,000 mg Rosuvastatin Calcium (Crestor) 10 mg PO HS [facility] Last Admin: 07/18/18 21:43 Dose: 10 mg - Labs Labs: 07/17/18 12:25 07/17/18 12:25 PT 11.0 SECONDS (9.7-12.2) 07/17/18 12:25 INR 1.0 07/17/18 12:25 APTT 32 SECONDS (21-34) 07/17/18 12:25 - Constitutional Appears: Well, Non-toxic, No Acute Distress - Head Exam Head Exam: ATRAUMATIC, NORMAL INSPECTION, NORMOCEPHALIC - Eye Exam Eye Exam: EOMI, Normal appearance, PERRL Pupil Exam: NORMAL ACCOMODATION, PERRL - ENT Exam ENT Exam: Mucous Membranes Moist - Neck Exam Neck Exam: Full ROM, Normal Inspection - Respiratory Exam Respiratory Exam: NORMAL BREATHING PATTERN - Extremities Exam Extremities Exam: absent: Full ROM Additional comments: decreased ROM to LUE - Neurological Exam Neurological Exam: Alert, Awake, Oriented x3, Reflexes Normal Neuro motor strength exam: Left Upper Extremity: 3, Right Upper Extremity: 4 Additional comments: Speech clear and fluid No facial asymmetry +pronator drift to LUE Weakness noted to LUE with decreased wire insulator (3/5) Sensation intact and equal - Psychiatric Exam Psychiatric exam: Normal Affect, Normal Mood - Skin Skin Exam: Normal Color Assessment and Plan (1) CVA (cerebral vascular accident) Assessment & Plan: Imaging: -MRI Brain (07/18/18): There are small acute-subacute subcortical and cortical infarct changes seen in the right posterior temporoparietal watershed zone and superiorly in the right posterior frontoparietal region near the vertex. There also appears to be some minimal early cortical surface enhancement along these infarct changes.. No acute intracranial hemorrhage. Mild chronic white matter ischemic changes with suspected minor chronic brainstem ischemic changes as well. -CT Head (07/17/18): No acute intracranial pathology identified. -CTA head and neck (07/18/18): 1. Heavy calcified and noncalcified atherosclerotic plaques in the proximal right internal carotid artery. Severe greater than 70% hemodynamically significant stenosis in the proximal right internal carotid artery. 2. No evidence of significant stenosis in the left internal carotid artery. 3. Patent bilateral vertebral arteries. The right vertebral artery is hypoplastic, an anatomic variant -ECHO done, results pending -PT/OT/SL -Continue asa, plavx, statin -SCD's -Notify neuro team of acute changes. -Vascular surgery on case; possible candidate for endarterectomy. -We will continue to follow the pt. Discussed with Dr. aMtthew Status: Acute
--- NOTE | 2018-07-19 14:02 | CP.PCM.PN ---
Subjective - Date & Time of Evaluation Date of Evaluation: 07/19/18 Time of Evaluation: 14:01 - Subjective Subjective: CHIEF COMPLAINTS TODAY : Minimal weakness on the left upper extremities speech is normal alert oriented. ROS. HEENT : N. Resp : No cough, wheezing ,pleuritic CP ,or hemoptysis Cardio : No anginal CP, PND, orthopnea, palpitation GI : No abd.pain, n/v ,diarrhea or GI bleeding . 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 Ext : No swelling ,calf pain PE. Pt. is alert awake in no distress. V.S As noted in the chart Head ,ear nose,throat and eyes : Normal. Neck : Supple with normal carotids. Lungs: Clear air entry. Heart : S1 & S2 normal with S4. No murmur. Abd : Soft non tender with normal bowel sounds. Neuro : Higher functions are normal and no facial nerve palsy. Left upper extremity shows mild weakness. Reflexes are normal Ext : No edema with intact pulses.Non tender calves Derm : No rashes or decubitus ulcer. LABS/RADIOLOGY: MRI shows acute and subacute infarct in the right cerebral hem isphere. Carotid Doppler shows right proximal internal carotid artery more than 75% lesion ASSESSMENT/PLAN : Continue present medications will add lisinopril for blood pressure. Vascular evaluation for left carotid endarterectomy Prior to surgery patient will need a complete cardiac workup. Objective - Vital Signs/Intake and Output Vital Signs (last 24 hours): Temp Pulse Resp BP Pulse Ox 98.0 F 88 20 149/81 97 07/19/18 07:57 07/19/18 11:14 07/19/18 07:57 07/19/18 07:57 07/19/18 07:57 - Medications Medications: Current Medications Acetaminophen (Tylenol 325mg Tab) 650 mg PO Q4 PRN PRN Reason: Headache Last Admin: 07/18/18 21:43 Dose: 650 mg Aspirin (Ecotrin) 81 mg PO DAILY [facility] Last Admin: 07/19/18 11:02 Dose: 81 mg Clopidogrel Bisulfate (Plavix) 75 mg PO DAILY [facility] Last Admin: 07/19/18 11:03 Dose: 75 mg Ezetimibe (Zetia) 10 mg PO DAILY [facility] Last Admin: 07/19/18 11:04 Dose: 10 mg Glipizide (Glucotrol Xl) 10 mg PO BID [facility] Last Admin: 07/19/18 11:02 Dose: 10 mg Home Med (Linagliptin [Tradjenta]) 5 mg PO DAILY [facility] Sodium Chloride (Sodium Chloride 0.9%) 1,000 mls @ 100 mls/hr IV .Q10H [facility] Last Admin: 07/19/18 05:30 Dose: 100 mls/hr Insulin Human Regular (Novolin R) 0 unit SC ACHS [facility]; Protocol Last Admin: 07/19/18 12:25 Dose: 4 u Lisinopril (Zestril) 20 mg PO DAILY [facility] Last Admin: 07/19/18 11:03 Dose: 20 mg Metformin HCl (Glucophage) 1,000 mg PO BIDCC [facility] Last Admin: 07/19/18 08:37 Dose: 1,000 mg Rosuvastatin Calcium (Crestor) 10 mg PO HS [facility] Last Admin: 07/18/18 21:43 Dose: 10 mg - Labs Labs: 07/17/18 12:25 07/17/18 12:25 PT 11.0 SECONDS (9.7-12.2) 07/17/18 12:25 INR 1.0 07/17/18 12:25 APTT 32 SECONDS (21-34) 07/17/18 12:25
--- NOTE | 2018-07-19 15:19 | CP.PCM.PN ---
Subjective - Date & Time of Evaluation Date of Evaluation: 07/19/18 Time of Evaluation: 15:18 - Subjective Subjective: studies reviewed /patient examined/discussed with family Dr gilmoer aware should be considered for right endarterectomy Objective - Vital Signs/Intake and Output Vital Signs (last 24 hours): Temp Pulse Resp BP Pulse Ox 98.0 F 88 20 149/81 97 07/19/18 07:57 07/19/18 11:14 07/19/18 07:57 07/19/18 07:57 07/19/18 07:57 Intake and Output: 07/19/18 07/19/18 06:59 18:59 Intake Total 800 Balance 800 - Medications Medications: Current Medications Acetaminophen (Tylenol 325mg Tab) 650 mg PO Q4 PRN PRN Reason: Headache Last Admin: 07/19/18 14:51 Dose: 650 mg Aspirin (Ecotrin) 81 mg PO DAILY [facility] Last Admin: 07/19/18 11:02 Dose: 81 mg Clopidogrel Bisulfate (Plavix) 75 mg PO DAILY [facility] Last Admin: 07/19/18 11:03 Dose: 75 mg Ezetimibe (Zetia) 10 mg PO DAILY [facility] Last Admin: 07/19/18 11:04 Dose: 10 mg Glipizide (Glucotrol Xl) 10 mg PO BID [facility] Last Admin: 07/19/18 11:02 Dose: 10 mg Home Med (Linagliptin [Tradjenta]) 5 mg PO DAILY [facility] Sodium Chloride (Sodium Chloride 0.9%) 1,000 mls @ 100 mls/hr IV .Q10H [facility] Last Admin: 07/19/18 05:30 Dose: 100 mls/hr Insulin Human Regular (Novolin R) 0 unit SC ACHS [facility]; Protocol Last Admin: 07/19/18 12:25 Dose: 4 u Lisinopril (Zestril) 20 mg PO DAILY [facility] Last Admin: 07/19/18 11:03 Dose: 20 mg Metformin HCl (Glucophage) 1,000 mg PO BIDCC [facility] Last Admin: 07/19/18 08:37 Dose: 1,000 mg Rosuvastatin Calcium (Crestor) 10 mg PO HS [facility] Last Admin: 07/18/18 21:43 Dose: 10 mg - Labs Labs: 07/17/18 12:25 07/17/18 12:25 PT 11.0 SECONDS (9.7-12.2) 07/17/18 12:25 INR 1.0 07/17/18 12:25 APTT 32 SECONDS (21-34) 07/17/18 12:25
[2018-07-20] MEDS: Sodium Chloride 0.9% 1,000 ML IV SCH ×4 (03:35→21:01)
--- NOTE | 2018-07-20 07:11 | VASCLAB ---
Date of service: 07/18/2018 PROCEDURE: Carotid Duplex Exam. HISTORY: cva COMPARISON: None available. TECHNIQUE: Grayscale and duplex Doppler evaluation of the cervical carotid and vertebral arteries were performed. The common carotid, carotid bifurcations and cervical Internal Carotid Artery (ICA) and proximal External Carotid Artery (ECA) were evaluated. The vertebral arteries were evaluated for gross patency and flow direction. Report prepared by Bryan Linder, BS, RVT FINDINGS: RIGHT CAROTID ARTERIES: 1. Common Carotid Artery: No significant focal plaque formation of the right common carotid artery. Maximum Peak Systolic velocity: 83 cm/sec: End-diastolic velocity 14 cm/sec. 2. Carotid Bifurcation: Heterogeneous plaque formation. Maximum Peak Systolic velocity: 77 cm/sec: End-diastolic velocity 13 cm/sec. 3. Internal Carotid Artery: Severe plaque formation of the right proximal ICA which results in a hemodynamically significant stenosis. Plaque description: Heterogeneous 3.1. Proximal Segment: Peak systolic velocity 429 cm/sec: End-diastolic velocity 141 cm/sec - % stenosis 70-95% 3.2. Middle Segment: Peak systolic velocity 133 cm/sec: End-diastolic velocity 25 cm/sec - % stenosis 0-15% 3.3. Distal Segment: Peak systolic velocity 140 cm/sec: End-diastolic velocity 43 cm/sec - % stenosis 16-49% 4. External Carotid Artery: No significant focal plaque formation. Peak systolic velocity 137 cm/sec 5. ICA/CCA Ratio: 5.2 LEFT CAROTID ARTERIES: 1. Common Carotid Artery: No significant focal plaque formation of the left common carotid artery. Maximum Peak Systolic velocity: 130 cm/sec: End-diastolic velocity 20 cm/sec. 2. Carotid Bifurcation: plaque formation. Maximum Peak Systolic velocity: 79 cm/sec: End-diastolic velocity 0 cm/sec. 3. Internal Carotid Artery: Plaque description: 3.1. Proximal Segment: Peak systolic velocity 163 cm/sec: End-diastolic velocity 36 cm/sec - % stenosis 0-15% 3.2. Middle Segment: Peak systolic velocity 119 cm/sec: End-diastolic velocity 26 cm/sec - % stenosis 0-15% 3.3. Distal Segment: Peak systolic velocity 114 cm/sec: End-diastolic velocity 27 cm/sec - % stenosis 0-15% 4. External Carotid Artery: No significant focal plaque formation. Peak systolic velocity 115 cm/sec 5. ICA/CCA Ratio: 1.2 VERTEBRAL ARTERIES: 1. Right Vertebral Artery: The right vertebral artery flow direction is antegrade. 2. Left Vertebral Artery: The left vertebral artery flow direction is antegrade. OTHER FINDINGS: 1. Right Brachial Blood pressure: mmHg. 2. Left Brachial Blood pressure: mmHg. 3. No atherosclerotic calcification present IMPRESSION: RIGHT: 70-95% stenosis of the right proximal ICA with severe hemodynamic significance. LEFT: Duplex scan does not suggest hemodynamically significant stenosis of the left extracranial carotid arteries. TORO Lechugaila notified about the findings.
[2018-07-20] MEDS: (Novolin R) Insulin Human Regular 100 units/ml vial SC SCH ×5 (07:43→22:04)
--- NOTE | 2018-07-20 07:52 | CARD ---
APPROVED REPORT Date of service: 07/19/2018 EXAM: Two-dimensional and M-mode echocardiogram with Doppler and color Doppler. Other Information Quality : [employer]hythm : RISK FACTORS Hypertension Diabetes 2D DIMENSIONS IVSd1.1 (0.7-1.1cm)LVDd4.5 (3.9-5.9cm) PWd1.3 (0.7-1.1cm)LA Vbelad99 (18-58mL) LVDs3.1 (2.5-4.0cm)FS (%) 30.9 % LVEF (%)60.0 (>50%)LVEF (Castellano's)67.28 % M-Mode DIMENSIONS Left Atrium (MM)4.05 (2.5-4.0cm)IVSd0.98 (0.7-1.1cm) Aortic Root3.07 (2.2-3.7cm)LVDd5.71 (4.0-5.6cm) Aortic Cusp Exc.1.82 (1.5-2.0cm)PWd0.75 (0.7-1.1cm) FS (%) 36 %LVDs3.64 (2.0-3.8cm) LVEF (%)65 (>50%) Mitral Valve MV E Uykywcnt85.3cm/sE/A ratio0.0 TDI Lateral E' Peak V8.90cm/sMedial E' Peak V4.51cm/sE/Lateral E'7.3 E/Medial E'14.5 Tricuspid Valve TR Peak Ijevfxyu265ft/sTR Peak Gr.[id number] LEFT VENTRICLE The left ventricle is normal size. There is borderline concentric left ventricular hypertrophy. Left ventricle systolic function is normal. The Ejection Fraction is 65-70%. There is normal LV segmental wall motion. The left ventricular diastolic function is normal. RIGHT VENTRICLE The right ventricle is normal size. There is normal right ventricular wall thickness. The right ventricular systolic function is normal. ATRIA The left atrium size is normal. The right atrium size is normal. The interatrial septum is intact with no evidence for an atrial septal defect. AORTIC VALVE The aortic valve is normal in structure. No aortic regurgitation is present. There is no aortic valvular stenosis. MITRAL VALVE The mitral valve is normal in structure. There is no evidence of mitral valve prolapse. There is no mitral valve stenosis. Mitral regurgitation is mild. TRICUSPID VALVE The tricuspid valve is normal in structure. There is mild tricuspid regurgitation. Right ventricular systolic pressure is estimated at 40-50 mmHg. There is mild-moderate pulmonary hypertension. PULMONIC VALVE The pulmonic valve is not well visualized. There is no pulmonic valvular regurgitation. GREAT VESSELS The aortic root is normal in size. PERICARDIAL EFFUSION There is no significant pericardial effusion. <Conclusion> Left ventricle systolic function is normal. The Ejection Fraction is 65-70%. Hypertensive heart disease. No aortic regurgitation is present. Mitral regurgitation is mild. There is mild tricuspid regurgitation. There is mild-moderate pulmonary hypertension. There is no pulmonic valvular regurgitation.
--- NOTE | 2018-07-20 08:28 | CP.PCM.PN ---
Subjective - Date & Time of Evaluation Date of Evaluation: 07/20/18 Time of Evaluation: 08:27 - Subjective Subjective: echo noted ejf 65% eill plan right cea when cleared Objective - Vital Signs/Intake and Output Vital Signs (last 24 hours): Temp Pulse Resp BP Pulse Ox 98.2 F 96 H 20 142/85 97 07/19/18 23:15 07/20/18 07:30 07/19/18 23:15 07/19/18 23:15 07/19/18 23:15 Intake and Output: 07/20/18 07/20/18 06:59 18:59 Intake Total 900 Balance 900 - Medications Medications: Current Medications Acetaminophen (Tylenol 325mg Tab) 650 mg PO Q4 PRN PRN Reason: Headache Last Admin: 07/19/18 14:51 Dose: 650 mg Aspirin (Ecotrin) 81 mg PO DAILY [facility] Last Admin: 07/19/18 11:02 Dose: 81 mg Clopidogrel Bisulfate (Plavix) 75 mg PO DAILY [facility] Last Admin: 07/19/18 11:03 Dose: 75 mg Ezetimibe (Zetia) 10 mg PO DAILY [facility] Last Admin: 07/19/18 11:04 Dose: 10 mg Glipizide (Glucotrol Xl) 10 mg PO BID [facility] Last Admin: 07/19/18 18:00 Dose: 10 mg Home Med (Linagliptin [Tradjenta]) 5 mg PO DAILY [facility] Sodium Chloride (Sodium Chloride 0.9%) 1,000 mls @ 100 mls/hr IV .Q10H [facility] Last Admin: 07/20/18 03:37 Dose: 100 mls/hr Insulin Human Regular (Novolin R) 0 unit SC [facility]; Protocol Last Admin: 07/20/18 07:43 Dose: Not Given Lisinopril (Zestril) 20 mg PO DAILY [facility] Last Admin: 07/19/18 11:03 Dose: 20 mg Metformin HCl (Glucophage) 1,000 mg PO BIDCC [facility] Last Admin: 07/19/18 18:00 Dose: 1,000 mg Rosuvastatin Calcium (Crestor) 10 mg PO HS [facility] Last Admin: 07/19/18 22:47 Dose: 10 mg - Labs Labs: 07/17/18 12:25 07/17/18 12:25 PT 11.0 SECONDS (9.7-12.2) 07/17/18 12:25 INR 1.0 07/17/18 12:25 APTT 32 SECONDS (21-34) 07/17/18 12:25
[2018-07-20] MEDS: GlipiZIDE 10 mg SR Tab PO SCH ×2 (09:33→18:27)
[2018-07-20] MEDS ORDERED: Caffeine Citrated **INJ** 20 MG/ML IV ONE (12:36)
--- NOTE | 2018-07-20 14:01 | CP.PCM.PN ---
Subjective - Date & Time of Evaluation Date of Evaluation: 07/20/18 Time of Evaluation: 14:00 - Subjective Subjective: CHIEF COMPLAINTS TODAY : Minimal weakness on the left upper extremities speech is normal alert oriented. ROS. HEENT : N. Resp : No cough, wheezing ,pleuritic CP ,or hemoptysis Cardio : No anginal CP, PND, orthopnea, palpitation GI : No abd.pain, n/v ,diarrhea or GI bleeding . 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 Ext : No swelling ,calf pain PE. Pt. is alert awake in no distress. V.S As noted in the chart Head ,ear nose,throat and eyes : Normal. Neck : Supple with normal carotids. Lungs: Clear air entry. Heart : S1 & S2 normal with S4. No murmur. Abd : Soft non tender with normal bowel sounds. Neuro : Higher functions are normal and no facial nerve palsy. Left upper extremity shows mild weakness. Reflexes are normal Ext : No edema with intact pulses.Non tender calves Derm : No rashes or decubitus ulcer. LABS/RADIOLOGY: MRI shows acute and subacute infarct in the right cerebral hem isphere. Carotid Doppler shows right proximal internal carotid artery more than 75% lesion ASSESSMENT/PLAN : Continue present medications will add lisinopril for blood pressure. Vascular evaluation for left carotid endarterectomy for IV Lexiscan stress test today Objective - Vital Signs/Intake and Output Vital Signs (last 24 hours): Temp Pulse Resp BP Pulse Ox 98.1 F 80 20 166/92 H 100 07/20/18 09:31 07/20/18 13:20 07/20/18 09:31 07/20/18 09:31 07/20/18 09:31 Intake and Output: 07/20/18 07/20/18 11:59 23:59 Intake Total 900 Balance 900 - Medications Medications: Current Medications Acetaminophen (Tylenol 325mg Tab) 650 mg PO Q4 PRN PRN Reason: Headache Last Admin: 07/20/18 10:12 Dose: 650 mg Aspirin (Ecotrin) 81 mg PO DAILY [facility] Last Admin: 07/20/18 09:33 Dose: 81 mg Clopidogrel Bisulfate (Plavix) 75 mg PO DAILY [facility] Last Admin: 07/20/18 09:33 Dose: 75 mg Ezetimibe (Zetia) 10 mg PO DAILY [facility] Last Admin: 07/20/18 09:33 Dose: 10 mg Glipizide (Glucotrol Xl) 10 mg PO BID [facility] Last Admin: 07/20/18 09:33 Dose: 10 mg Home Med (Linagliptin [Tradjenta]) 5 mg PO DAILY [facility] Insulin Human Regular (Novolin R) 0 unit SC ACHS [facility]; Protocol Last Admin: 07/20/18 12:43 Dose: 3 u Lisinopril (Zestril) 20 mg PO DAILY [facility] Last Admin: 07/20/18 09:33 Dose: 20 mg Metformin HCl (Glucophage) 1,000 mg PO BIDCC [facility] Last Admin: 07/20/18 08:39 Dose: Not Given Rosuvastatin Calcium (Crestor) 10 mg PO HS [facility] Last Admin: 07/19/18 22:47 Dose: 10 mg - Labs Labs: 07/17/18 12:25 07/17/18 12:25 PT 11.0 SECONDS (9.7-12.2) 07/17/18 12:25 INR 1.0 07/17/18 12:25 APTT 32 SECONDS (21-34) 07/17/18 12:25
--- NOTE | 2018-07-20 15:07 | CP.PCM.PN ---
Subjective - Date & Time of Evaluation Date of Evaluation: 07/20/18 Time of Evaluation: 15:05 - Subjective Subjective: Neurology Consultation Follow-Up Note: Mrs. Styles was evaluated today at bedside. She is still complaining of left arm weakness that is improving. Headache has resolved. She currently denies h/a, dizziness, visual changes, chest pain, shortness of breath, n/v/d. Pt is for Lexiscan today. Objective - Vital Signs/Intake and Output Vital Signs (last 24 hours): Temp Pulse Resp BP Pulse Ox 98.1 F 80 20 166/92 H 100 07/20/18 09:31 07/20/18 13:20 07/20/18 09:31 07/20/18 09:31 07/20/18 09:31 Intake and Output: 07/20/18 07/20/18 06:59 18:59 Intake Total 900 Balance 900 - Medications Medications: Current Medications Acetaminophen (Tylenol 325mg Tab) 650 mg PO Q4 PRN PRN Reason: Headache Last Admin: 07/20/18 10:12 Dose: 650 mg Aspirin (Ecotrin) 81 mg PO DAILY [facility] Last Admin: 07/20/18 09:33 Dose: 81 mg Clopidogrel Bisulfate (Plavix) 75 mg PO DAILY [facility] Last Admin: 07/20/18 09:33 Dose: 75 mg Ezetimibe (Zetia) 10 mg PO DAILY [facility] Last Admin: 07/20/18 09:33 Dose: 10 mg Glipizide (Glucotrol Xl) 10 mg PO BID [facility] Last Admin: 07/20/18 09:33 Dose: 10 mg Home Med (Linagliptin [Tradjenta]) 5 mg PO DAILY [facility] Insulin Human Regular (Novolin R) 0 unit SC [facility]; Protocol Last Admin: 07/20/18 12:43 Dose: 3 u Lisinopril (Zestril) 20 mg PO DAILY [facility] Last Admin: 07/20/18 09:33 Dose: 20 mg [facility] Last Admin: 07/20/18 08:39 Dose: Not Given Rosuvastatin Calcium (Crestor) 10 mg PO HS [facility] Last Admin: 07/19/18 22:47 Dose: 10 mg - Labs Labs: 07/17/18 12:25 07/17/18 12:25 PT 11.0 SECONDS (9.7-12.2) 07/17/18 12:25 INR 1.0 07/17/18 12:25 APTT 32 SECONDS (21-34) 07/17/18 12:25 - Constitutional Appears: Well, Non-toxic, No Acute Distress - Head Exam Head Exam: ATRAUMATIC, NORMAL INSPECTION, NORMOCEPHALIC - Eye Exam Eye Exam: EOMI, Normal appearance, PERRL Pupil Exam: NORMAL ACCOMODATION, PERRL - ENT Exam ENT Exam: Mucous Membranes Moist - Neck Exam Neck Exam: Full ROM - Respiratory Exam Respiratory Exam: NORMAL BREATHING PATTERN - Extremities Exam Extremities Exam: Full ROM, Normal Inspection - Neurological Exam Neurological Exam: Alert, Awake, Oriented x3, Reflexes Normal Neuro motor strength exam: Left Upper Extremity: 3, Right Upper Extremity: 4, Left Lower Extremity: 5, Right Lower Extremity: 5 Additional comments: Speech clear and fluid No facial asymmetry +pronator drift to LUE Weakness still noted to LUE with decreased human resources training manager (3/5) Sensation intact and equal - Psychiatric Exam Psychiatric exam: Normal Affect, Normal Mood - Skin Skin Exam: Normal Color Assessment and Plan (1) CVA (cerebral vascular accident) Assessment & Plan: Imaging: -MRI Brain (07/18/18): There are small acute-subacute subcortical and cortical infarct changes seen in the right posterior temporoparietal watershed zone and superiorly in the right posterior frontoparietal region near the vertex. There also appears to be some minimal early cortical surface enhancement along these infarct changes. No acute intracranial hemorrhage. Mild chronic white matter ischemic changes with suspected minor chronic brainstem ischemic changes as well . -CT Head (07/17/18): No acute intracranial pathology identified. -CTA head and neck (07/18/18): 1. Heavy calcified and noncalcified atherosclerotic plaques in the proximal right internal carotid artery. Severe greater than 70% hemodynamically significant stenosis in the proximal right internal carotid artery. 2. No evidence of significant stenosis in the left internal carotid artery. 3. Patent bilateral vertebral arteries. The right vertebral artery is hypoplastic, an anatomic variant. -ECHO done: normal LVEF -Continue PT/OT/SL -Continue asa, plavx, statin -SCD's -Notify neuro team of acute changes. -Vascular surgery on case; possible candidate for endarterectomy after cardiac clearance. -For ALDA Scan today with cardiology. -We will continue to follow the pt. Discussed with Dr. Nam Status: Acute
[2018-07-21] MEDS: (Novolin R) Insulin Human Regular 100 units/ml vial SC SCH ×4 (08:24→21:45)
--- NOTE | 2018-07-21 09:33 | CP.PCM.PN ---
Subjective - Date & Time of Evaluation Date of Evaluation: 07/21/18 Time of Evaluation: 09:29 - Subjective Subjective: Vascular Surgery Progress Note For Dr. Resendez This 73F was seen and examined this AM at bedside no acute events reported overnight. She had her stress test yesterday results pending. Objective - Vital Signs/Intake and Output Vital Signs (last 24 hours): Temp Pulse Resp BP Pulse Ox 98.5 F 91 H 20 167/84 H 98 07/21/18 07:00 07/21/18 07:00 07/21/18 08:35 07/21/18 08:35 07/21/18 07:00 Intake and Output: 07/21/18 07/21/18 06:59 18:59 Intake Total 900 Balance 900 - Medications Medications: Current Medications Acetaminophen (Tylenol 325mg Tab) 650 mg PO Q4 PRN PRN Reason: Headache Last Admin: 07/20/18 10:12 Dose: 650 mg Aspirin (Ecotrin) 81 mg PO DAILY [facility] Last Admin: 07/20/18 09:33 Dose: 81 mg Clopidogrel Bisulfate (Plavix) 75 mg PO DAILY [facility] Last Admin: 07/20/18 09:33 Dose: 75 mg Ezetimibe (Zetia) 10 mg PO DAILY [facility] Last Admin: 07/20/18 09:33 Dose: 10 mg Glipizide (Glucotrol Xl) 10 mg PO BID [facility] Last Admin: 07/20/18 18:27 Dose: 10 mg Home Med (Linagliptin [Tradjenta]) 5 mg PO DAILY [facility] Insulin Human Regular (Novolin R) 0 unit SC [facility]; Protocol Last Admin: 07/21/18 08:24 Dose: 2 u Lactulose (Enulose) 20 gm PO ONCE ONE Stop: 07/21/18 10:01 Lisinopril (Zestril) 20 mg PO DAILY [facility] Last Admin: 07/20/18 09:33 Dose: 20 mg Metformin HCl (Glucophage) 1,000 mg PO BIDCC [facility] Last Admin: 07/21/18 08:24 Dose: 1,000 mg Rosuvastatin Calcium (Crestor) 10 mg PO HS [facility] Last Admin: 07/20/18 21:01 Dose: 10 mg - Labs Labs: 07/17/18 12:25 07/17/18 12:25 PT 11.0 SECONDS (9.7-12.2) 12/04/18 12:25 INR 1.0 07/17/18 12:25 APTT 32 SECONDS (21-34) 07/17/18 12:25 - Constitutional Appears: Well, Non-toxic, No Acute Distress - Head Exam Head Exam: ATRAUMATIC, NORMAL INSPECTION, NORMOCEPHALIC - Eye Exam Eye Exam: EOMI, Normal appearance. absent: Scleral icterus - ENT Exam ENT Exam: Mucous Membranes Moist, Normal Exam - Neck Exam Neck exam: Positive for: Normal Inspection - Respiratory Exam Respiratory Exam: NORMAL BREATHING PATTERN. absent: Accessory Muscle Use, Respiratory Distress - Cardiovascular Exam Cardiovascular Exam: RRR. absent: JVD - GI/Abdominal Exam GI & Abdominal Exam: Soft. absent: Bruit, Distended, Firm, Guarding, Rebound, Rigid, Tenderness - Extremities Exam Extremities exam: Positive for: normal inspection. Negative for: calf tenderness - Back Exam Back exam: NORMAL INSPECTION - Neurological Exam Neurological exam: Alert, Oriented x3 - Psychiatric Exam Psychiatric exam: Normal Affect, Normal Mood - Skin Skin Exam: Dry, Intact, Normal Color, Warm Assessment and Plan - Assessment and Plan (Free Text) Assessment: 73F with R ICA stenosis Discussed with patient and family the benefits and alternatives of CEA, I told them at this time to think about it and when they are cleared for surgery we will address it again. Pending clearance will likely plan for surgery early next week. Further recs per Dr. Mal Lanza PGY3
[2018-07-21] MEDS: GlipiZIDE 10 mg SR Tab PO SCH ×2 (09:44→17:00)
--- NOTE | 2018-07-21 10:40 | CP.PCM.PN ---
Subjective - Date & Time of Evaluation Date of Evaluation: 07/21/18 Time of Evaluation: 10:40 - Subjective Subjective: scan pending advise right cea patient and family ambivalent Objective - Vital Signs/Intake and Output Vital Signs (last 24 hours): Temp Pulse Resp BP Pulse Ox 98.5 F 91 H 20 167/84 H 98 07/21/18 07:00 07/21/18 07:00 07/21/18 08:35 07/21/18 08:35 07/21/18 07:00 Intake and Output: 07/21/18 07/21/18 06:59 18:59 Intake Total 900 Balance 900 - Medications Medications: Current Medications Acetaminophen (Tylenol 325mg Tab) 650 mg PO Q4 PRN PRN Reason: Headache Last Admin: 07/20/18 10:12 Dose: 650 mg Aspirin (Ecotrin) 81 mg PO DAILY [facility] Last Admin: 07/21/18 09:44 Dose: 81 mg Clopidogrel Bisulfate (Plavix) 75 mg PO DAILY [facility] Last Admin: 07/21/18 09:44 Dose: 75 mg Ezetimibe (Zetia) 10 mg PO DAILY [facility] Last Admin: 07/20/18 09:33 Dose: 10 mg Glipizide (Glucotrol Xl) 10 mg PO BID [facility] Last Admin: 07/21/18 09:44 Dose: 10 mg Home Med (Linagliptin [Tradjenta]) 5 mg PO DAILY [facility] Insulin Human Regular (Novolin R) 0 unit SC [facility]; Protocol Last Admin: 07/21/18 08:24 Dose: 2 u Lisinopril (Zestril) 20 mg PO DAILY [facility] Last Admin: 07/21/18 09:44 Dose: 20 mg Metformin HCl (Glucophage) 1,000 mg PO BIDCC [facility] Last Admin: 07/21/18 08:24 Dose: 1,000 mg Rosuvastatin Calcium (Crestor) 10 mg PO HS [facility] Last Admin: 07/20/18 21:01 Dose: 10 mg - Labs Labs: 07/17/18 12:25 07/17/18 12:25 PT 11.0 SECONDS (9.7-12.2) 07/17/18 12:25 INR 1.0 07/17/18 12:25 APTT 32 SECONDS (21-34) 07/17/18 12:25
--- NOTE | 2018-07-21 14:49 | CARD ---
APPROVED REPORT Date of service: 07/20/2018 Protocol: LEXISCAN Test Type: LEXISCAN STRESS Test Indications: CAD Medications: LIST Target HR: 148 bpm Resting Heart Rate: 90 bpm Resting Blood Pressure: 128/80mmHg submaximum (85%): 126 bpm TEST SUMMARY [id number]:02...089/.3. PREINFSNHYPERV.43:460.00.01.213459/80.0. INFUSIONDOSE 100:300.00..085/.0. JLVFYQHEE26:230.00..9500919/80.3. PROCEDURE Pharmacologic stress testing was performed using 0.4mg per 5ml of regadenoson given intravenously over 7-10 seconds. POST EXERCISE Target HR: No Max HR: 85 bpm 76% of Maximum Predicted HR: 148 bpm Exercise duration: 00:30 min:sec, 0 Stage Exercise capacity: 1.0METs Max Blood Pressure: 128/80mmHg Chest Pain: Yes, Angina index: 0 Arrhythmia: Yes, ST Change: Yes, Deviation: 0 mm EXAM: Myocardial Perfusion REST/STRESS Imaging Protocol The imaging protocol used to acquire images was Rest Tc-99m/stress Tc-99m 1 day Rest Spect myocardial perfusion imaging was performed in supine position 45 minutes following the injection of 12.3 mCi of Tc-99 Myoview. Gated Stress Spect was performed 55 minutes after intravenous 32.5 mci Tc-99 Myoview injection. The images were gated to evaluate regional wall motion and calculate ventricular ejection fraction.Images were reconstructed using backfilter projection method in short horizontal and verticle long axis. Spect slices were generated. RESTING DATA EDV79.46toDN8.20L/min ESV20.00mlMyocardial Bbtx643.00g Av. Heart Rate88.00bpm EF75.00% STRESS DATA EDV92.74dxNU8.90L/min ESV31.00mlMyocardial Sxef932.00g EF66.00% Regional WT score at stress:0.00 Regional WM score at stress:0.00 Summed WT score at stress:13.00 Av. Heart Rate80.00bpmSummed WM score at stress:2.00 LV Perf. Quant 17 Seg. SSS5.00 17 Seg. SRS9.00 17 Seg. SDS0.00 Stress Defect Extent (% LAD)0.00Rest Defect Extent (% LAD)10.00Rev. Defect Extent (% LAD)0.00 Stress Defect Extent (% LCX)31.30Rest Defect Extent (% LCX)43.80Rev. Defect Extent (% LCX)0.00 Stress Defect Extent (% RCA)0.00Rest Defect Extent (% RCA)0.00Rev. Defect Extent (% RCA)0.00 Stress Defect Extent (% CHRIS)9.60Rest Defect Extent (% CHRIS)19.30Rev. Defect Extent (% CHRIS)0.00 Conclusion 1. NORMAL STUDY 2. NORMAL LV EF OF 66% 3. NO WALL MOTION ABNORMALITY ON PEAK INJECTION 4. ON PROCESS IMAGES THERE ARE DEFECT AT RESTLARGER THAN PEAK INJECTION SUGGEST ARTIFACTS
--- NOTE | 2018-07-21 14:52 | CP.PCM.PN ---
Subjective - Date & Time of Evaluation Date of Evaluation: 07/21/18 Time of Evaluation: 14:50 - Subjective Subjective: CHIEF COMPLAINTS TODAY : Minimal weakness on the left upper extremities speech is normal alert oriented. ROS. HEENT : N. Resp : No cough, wheezing ,pleuritic CP ,or hemoptysis Cardio : No anginal CP, PND, orthopnea, palpitation GI : No abd.pain, n/v ,diarrhea or GI bleeding . PRETZEL PACKER : Left upper extremity numbness Musculoskel : No joint swelling , Derm : No rash Psych : Normal affect. Ext : No swelling ,calf pain PE. Pt. is alert awake in no distress. V.S As noted in the chart Head ,ear nose,throat and eyes : Normal. Neck : Supple with normal carotids. Lungs: Clear air entry. Heart : S1 & S2 normal with S4. No murmur. Abd : Soft non tender with normal bowel sounds. Neuro : Higher functions are normal and no facial nerve palsy. Left upper extremity shows mild weakness. Reflexes are normal Ext : No edema with intact pulses.Non tender calves Derm : No rashes or decubitus ulcer. LABS/RADIOLOGY: MRI shows acute and subacute infarct in the right cerebral hem isphere. Carotid Doppler shows right proximal internal carotid artery more than 75% lesion ASSESSMENT/PLAN : IV LEXISCAN DOES NOT SHOW ANY SIGNIFICANT CAD NORMAL WALL MOTION ON PEAK INJECTION LOW PROBABILITY OF PRESENCE OF CAD PT. IS CLEARED FOR CEA IF FAMILY AGREES Objective - Vital Signs/Intake and Output Vital Signs (last 24 hours): Temp Pulse Resp BP Pulse Ox 98.5 F 91 H 20 167/84 H 98 07/21/18 07:00 07/21/18 07:00 07/21/18 08:35 07/21/18 08:35 07/21/18 07:00 Intake and Output: 07/21/18 07/21/18 11:59 23:59 Intake Total 900 480 Balance 900 480 - Medications Medications: Current Medications Acetaminophen (Tylenol 325mg Tab) 650 mg PO Q4 PRN PRN Reason: Headache Last Admin: 07/20/18 10:12 Dose: 650 mg Aspirin (Ecotrin) 81 mg PO DAILY [facility] Last Admin: 07/21/18 09:44 Dose: 81 mg Clopidogrel Bisulfate (Plavix) 75 mg PO DAILY [facility] Last Admin: 07/21/18 09:44 Dose: 75 mg Ezetimibe (Zetia) 10 mg PO HS [facility] Last Admin: 07/21/18 13:21 Dose: 10 mg Glipizide (Glucotrol Xl) 10 mg PO BID [facility] Last Admin: 07/21/18 09:44 Dose: 10 mg Home Med (Linagliptin [Tradjenta]) 5 mg PO DAILY [facility] Insulin Human Regular (Novolin R) 0 unit SC [facility]; Protocol Last Admin: 07/21/18 12:34 Dose: 3 u Lisinopril (Zestril) 20 mg PO DAILY [facility] Last Admin: 07/21/18 09:44 Dose: 20 mg Metformin HCl (Glucophage) 1,000 mg PO BIDCC [facility] Last Admin: 07/21/18 08:24 Dose: 1,000 mg Rosuvastatin Calcium (Crestor) 10 mg PO [facility] Last Admin: 07/20/18 21:01 Dose: 10 mg - Labs Labs: 07/17/18 12:25 07/17/18 12:25 PT 11.0 SECONDS (9.7-12.2) 07/17/18 12:25 INR 1.0 07/17/18 12:25 APTT 32 SECONDS (21-34) 07/17/18 12:25
[2018-07-22] MEDS: Sodium Chloride 0.9% 1,000 ML IV SCH ×2 (02:48→13:00)
[2018-07-22] MEDS: (Novolin R) Insulin Human Regular 100 units/ml vial SC SCH ×4 (08:05→23:20)
--- NOTE | 2018-07-22 08:08 | CP.PCM.PN ---
Subjective - Date & Time of Evaluation Date of Evaluation: 07/22/18 Time of Evaluation: 08:05 - Subjective Subjective: Vascular Surgery Consult Note for Dr. Resendez This 73F was seen and examined this Am at bedside no acute events overnight. Discussed operation with patient as well as stening and the option of not doing anything. After extensive discussion patient would like to have A CEA consent was signed with daughter, and nurse at bedside. Objective - Vital Signs/Intake and Output Vital Signs (last 24 hours): Temp Pulse Resp BP Pulse Ox 98.5 F 88 20 154/73 H 96 07/21/18 23:20 07/21/18 23:25 07/21/18 23:20 07/21/18 23:20 07/21/18 23:20 Intake and Output: 07/22/18 07/22/18 06:59 18:59 Intake Total 1040 920 Balance 1040 920 - Medications Medications: Current Medications Acetaminophen (Tylenol 325mg Tab) 650 mg PO Q4 PRN PRN Reason: Headache Last Admin: 07/21/18 21:54 Dose: 650 mg Aspirin (Ecotrin) 81 mg PO DAILY [facility] Last Admin: 07/21/18 09:44 Dose: 81 mg Clopidogrel Bisulfate (Plavix) 75 mg PO DAILY [facility] Last Admin: 07/21/18 09:44 Dose: 75 mg Ezetimibe (Zetia) 10 mg PO [facility] Last Admin: 07/21/18 21:54 Dose: 10 mg Glipizide (Glucotrol Xl) 10 mg PO BID [facility] Last Admin: 07/21/18 17:00 Dose: 10 mg Home Med (Linagliptin [Tradjenta]) 5 mg PO DAILY [facility] Insulin Human Regular (Novolin R) 0 unit SC [facility]; Protocol Last Admin: 07/21/18 21:45 Dose: Not Given Lisinopril (Zestril) 20 mg PO DAILY [facility] Last Admin: 07/21/18 09:44 Dose: 20 mg [facility] Last Admin: 07/21/18 16:59 Dose: 1,000 mg Rosuvastatin Calcium (Crestor) 10 mg PO [facility] Last Admin: 07/21/18 21:54 Dose: 10 mg - Labs Labs: 07/17/18 12:25 12/04/18 12:25 PT 11.0 SECONDS (9.7-12.2) 07/17/18 12:25 INR 1.0 07/17/18 12:25 APTT 32 SECONDS (21-34) 07/17/18 12:25 - Constitutional Appears: Well, Non-toxic, No Acute Distress - Head Exam Head Exam: ATRAUMATIC, NORMAL INSPECTION, NORMOCEPHALIC - Eye Exam Eye Exam: EOMI, Normal appearance. absent: Scleral icterus - ENT Exam ENT Exam: Mucous Membranes Moist, Normal Exam - Neck Exam Neck exam: Positive for: Normal Inspection - Respiratory Exam Respiratory Exam: NORMAL BREATHING PATTERN. absent: Accessory Muscle Use, Respiratory Distress - Cardiovascular Exam Cardiovascular Exam: RRR. absent: JVD - GI/Abdominal Exam GI & Abdominal Exam: Soft. absent: Bruit, Distended, Firm, Guarding, Rebound, Rigid, Tenderness - Extremities Exam Extremities exam: Positive for: normal inspection. Negative for: calf tenderness - Back Exam Back exam: NORMAL INSPECTION - Neurological Exam Neurological exam: Alert, Oriented x3 - Psychiatric Exam Psychiatric exam: Normal Affect, Normal Mood - Skin Skin Exam: Dry, Intact, Normal Color, Warm Assessment and Plan - Assessment and Plan (Free Text) Assessment: 73F with R ICA stenosis Planning for OR possibly tomorrow or early next week depending on schedule Further recs per Dr. Mal Lanza PGY3
[2018-07-22 08:17] LABS: BASO # 0.1 K/uL (0.0-0.2); BASO % 0.7 % (0.0-2.0); EOS # 0.2 K/uL (0.0-0.7); EOS % 2.2 % (0.0-4.0); HEMOGLOBIN 12.2 g/dL (11.0-16.0); LYMPH # 2.5 K/uL (1.0-4.3); LYMPH % 28.2 % (20.0-40.0); MEAN CELL VOLUME 88.9 fL (81.0-99.0); MEAN CORPUSCULAR HEMOGLOBIN 29.7 pg (27.0-31.0); MEAN CORPUSCULAR HGB CONC 33.4 g/dL (33.0-37.0); MEAN PLATELET VOLUME 10.6 fL (7.2-11.7); MONO # 1.3 K/uL (0.0-0.8); MONO % 13.9 % (0.0-10.0); NRBC % 0.1 % (0.0-2.0); RBC 4.12 Mil/uL (3.80-5.20); RED CELL DISTRIBUTION WIDTH 13.7 % (11.5-14.5)
[2018-07-22 08:34] LABS: BLOOD UREA NITROGEN 8 mg/dL (7-17); CALCIUM 8.6 mg/dl (8.6-10.4); GFR NON-AFRICAN AMERICAN > 60
[2018-07-22] MEDS: GlipiZIDE 10 mg SR Tab PO SCH ×2 (09:12→18:28)
--- NOTE | 2018-07-22 16:10 | CP.PCM.PN ---
Subjective - Date & Time of Evaluation Date of Evaluation: 07/22/18 Time of Evaluation: 16:08 - Subjective Subjective: Neurologically patient is improving. As stated above the cardiac workup so far has been negative for any significant coronary artery disease. I have discussed with multiple family members about the patient's further treatment that is to require right carotid endarterectomy. Family was also informed to discuss further with the surgery concerning the complications. Objective - Vital Signs/Intake and Output Vital Signs (last 24 hours): Temp Pulse Resp BP Pulse Ox 98.5 F 88 20 154/73 H 96 07/21/18 23:20 07/21/18 23:25 07/21/18 23:20 07/21/18 23:20 07/21/18 23:20 Intake and Output: 07/22/18 07/22/18 11:59 23:59 Intake Total 920 480 Balance 920 480 - Medications Medications: Current Medications Acetaminophen (Tylenol 325mg Tab) 650 mg PO Q4 PRN PRN Reason: Headache Last Admin: 07/21/18 21:54 Dose: 650 mg Aspirin (Ecotrin) 81 mg PO DAILY [facility] Last Admin: 07/22/18 09:12 Dose: 81 mg Clopidogrel Bisulfate (Plavix) 75 mg PO DAILY [facility] Last Admin: 07/22/18 09:12 Dose: 75 mg Ezetimibe (Zetia) 10 mg PO [facility] Last Admin: 07/21/18 21:54 Dose: 10 mg Glipizide (Glucotrol Xl) 10 mg PO BID [facility] Last Admin: 07/22/18 09:12 Dose: 10 mg Home Med (Linagliptin [Tradjenta]) 5 mg PO DAILY [facility] Insulin Human Regular (Novolin R) 0 unit SC [facility]; Protocol Last Admin: 07/22/18 12:16 Dose: 3 u Lisinopril (Zestril) 20 mg PO DAILY [facility] Last Admin: 07/22/18 09:12 Dose: 20 mg [facility] Last Admin: 07/22/18 08:04 Dose: 1,000 mg Rosuvastatin Calcium (Crestor) 10 mg PO [facility] Last Admin: 07/21/18 21:54 Dose: 10 mg - Labs Labs: 07/22/18 08:07 07/22/18 08:07 PT 11.0 SECONDS (9.7-12.2) 07/17/18 12:25 INR 1.0 07/17/18 12:25 APTT 32 SECONDS (21-34) 07/17/18 12:25
[2018-07-23 07:28] LABS: BASO # 0.1 K/uL (0.0-0.2); BASO % 0.8 % (0.0-2.0); EOS # 0.2 K/uL (0.0-0.7); EOS % 2.1 % (0.0-4.0); HEMOGLOBIN 12.5 g/dL (11.0-16.0); LYMPH # 2.6 K/uL (1.0-4.3); LYMPH % 27.3 % (20.0-40.0); MEAN CORPUSCULAR HEMOGLOBIN 29.7 pg (27.0-31.0); MEAN CORPUSCULAR HGB CONC 33.4 g/dL (33.0-37.0); MEAN PLATELET VOLUME 9.9 fL (7.2-11.7); MONO # 0.9 K/uL (0.0-0.8); MONO % 9.3 % (0.0-10.0); NEUT # 5.8 K/uL (1.8-7.0); NEUT % 60.5 % (50.0-75.0); RBC 4.21 Mil/uL (3.80-5.20); RED CELL DISTRIBUTION WIDTH 13.5 % (11.5-14.5); WHITE BLOOD COUNT 9.5 K/uL (4.8-10.8)
[2018-07-23 07:40] LABS: INR 1.1; PROTHROMBIN TIME 11.8 SECONDS (9.7-12.2)
[2018-07-23 07:49] LABS: ALBUMIN 3.5 g/dL (3.5-5.0); ALT/SGPT 22 U/L (9-52); AST/SGOT 15 U/L (14-36); BLOOD UREA NITROGEN 8 mg/dL (7-17); CALCIUM 8.9 mg/dl (8.6-10.4); GFR NON-AFRICAN AMERICAN > 60
[2018-07-23] MEDS: (Novolin R) Insulin Human Regular 100 units/ml vial SC SCH ×4 (08:01→21:22)
[2018-07-23] MEDS: GlipiZIDE 10 mg SR Tab PO SCH ×2 (10:00→17:00)
[2018-07-23] MEDS ORDERED: HEPARIN-NS 5,000 UNITS/500 ML 5,000 UNIT/500 ML BAG IV ONE ×2 (10:34→13:46)
[2018-07-23] MEDS ORDERED: Midazolam 2 MG/2 ML VIAL ONE (10:53)
[2018-07-23] MEDS ORDERED: Rocuronium 10 mg/ml (10 ml) ONE (10:54)
[2018-07-23] MEDS ORDERED: Propofol 10 mg/ml Inj (20 ML) ONE (10:54)
[2018-07-23] MEDS ORDERED: Nitroglycerin 2% Ointment Foilpak UD TOP ONE (10:55)
[2018-07-23] MEDS ORDERED: Lidocaine 1% 20 MG/2 ML PF AMP ONE (12:15)
[2018-07-23] MEDS ORDERED: Papaverine Hydrochloride 30 mg/ml (2ml) ONE (12:15)
[2018-07-23] MEDS ORDERED: Vancomycin 1 gm/D5W 200 ml 1 GM/200 ML BAG IVPB ONE (12:16)
[2018-07-23] MEDS ORDERED: Thrombin Topical 20,000 Intl Units Spray Kit TOP ONE (14:08)
[2018-07-23] MEDS ORDERED: HYDROmorphone 0.5 mg/0.5 ml ISec IVP PRN (15:19)
--- NOTE | 2018-07-23 15:19 | PCM.SURG1 ---
Surgeon's Initial Post Op Note - Surgeon's Notes Surgeon: Dr. Resendez Color Separation Photographer: Dr. Lanza PGY3, Delaney MS3 Type of Anesthesia: General Endo Pre-Operative Diagnosis: Right ICA Stenosis Operative Findings: See operative Post-Operative Diagnosis: Right ICA stenosis Operation Performed: Right Carotid Endarterectomy with Bovine patch angioplasty Specimen/Specimens Removed: Arterial Plaque Estimated Blood Loss: EBL {In ML}: 200 Blood Products Given: N/A Drains Used: No Drains Post-Op Condition: Good Date of Surgery/Procedure: 07/23/18 Time of Surgery/Procedure: 15:20
--- NOTE | 2018-07-23 16:10 | CP.PCM.CON ---
History of Present Illness - History of Present Illness History of Present Illness: Eleni Hoyt PGY1 Progress Note for Dr. Martinez Pt is a 73yo F with PMH of HTN and DM presenting to ED with complaint of LUE weakness and slurred speech. She reported associated numbness in the hands b/l and headache. She currently reports throat pain and pain in the neck. She denies chest pain, palpitations, nausea, vomiting, abdominal pain, diarrhea, dysuria. SHx: Denies SocHx: Denies tobacco, alcohol, or recreational drug use FamHx: Denies Allergies: Penicillin, ibuprofen, morphine Review of Systems - Review of Systems Review of Systems: as per HPI Past Patient History - Infectious Disease Hx of Infectious Diseases: None - Past Medical History & Family History Past Medical History?: Yes Past Family History: Reviewed and not pertinent - Past Social History Smoking Status: Never Smoked - CARDIAC Hx Hypercholesterolemia: Yes Hx Hypertension: Yes - ENDOCRINE/METABOLIC Hx Endocrine Disorders: Yes Hx Diabetes Mellitus Type 2: Yes - MUSCULOSKELETAL/RHEUMATOLOGICAL Hx Arthritis: Yes - PSYCHIATRIC Hx Psychophysiologic Disorder: No Hx Substance Use: No - SURGICAL HISTORY Hx Surgeries: Yes Other/Comment: left breast removal - ANESTHESIA Hx Anesthesia: Yes Hx Anesthesia Reactions: No Meds Allergies/Adverse Reactions: Allergies Allergy/AdvReac Type Severity Reaction Status Date / Time aspirin Allergy Verified 07/17/18 12:09 Penicillins Allergy Verified 07/17/18 12:09 morphine AdvReac Verified 05/13/17 04:26 - Medications Medications: Current Medications Acetaminophen (Tylenol 325mg Tab) 650 mg PO Q4 PRN PRN Reason: Headache Last Admin: 07/22/18 21:54 Dose: 650 mg Aspirin (Ecotrin) 81 mg PO DAILY [facility] Last Admin: 07/23/18 10:00 Dose: Not Given Clopidogrel Bisulfate (Plavix) 75 mg PO DAILY [facility] Last Admin: 07/23/18 11:00 Dose: Not Given Ezetimibe (Zetia) 10 mg PO HS [facility] Last Admin: 07/22/18 21:54 Dose: 10 mg Glipizide (Glucotrol Xl) 10 mg PO BID [facility] Last Admin: 07/23/18 10:00 Dose: Not Given Home Med (Linagliptin [Tradjenta]) 5 mg PO DAILY [facility] Hydromorphone HCl (Dilaudid) 0.5 mg IVP Q5M PRN PRN Reason: Pain, moderate (4-7) Stop: 07/23/18 17:19 Last Admin: 07/23/18 15:45 Dose: 0.5 mg Insulin Human Regular (Novolin R) 0 unit SC ACHS [facility]; Protocol Last Admin: 07/23/18 15:45 Dose: 0 unit Lisinopril (Zestril) 20 mg PO DAILY [facility] Last Admin: 07/23/18 10:00 Dose: Not Given Metformin HCl (Glucophage) 1,000 mg PO BIDCC [facility] Last Admin: 07/23/18 08:01 Dose: Not Given Ondansetron HCl (Zofran Inj) 4 mg IVP ONCE PRN PRN Reason: Nausea/Vomiting Stop: 07/23/18 17:19 Rosuvastatin Calcium (Crestor) 10 mg PO HS [facility] Last Admin: 07/22/18 21:54 Dose: 10 mg Physical Exam - Constitutional Appears: Well, No Acute Distress - Head Exam Head Exam: ATRAUMATIC, NORMOCEPHALIC - Eye Exam Eye Exam: EOMI, Normal appearance - ENT Exam ENT Exam: Mucous Membranes Moist - Neck Exam Additional comments: drain intact, draining red blood surgical site clean, dry, intact - Respiratory Exam Respiratory Exam: Clear to Auscultation Bilateral, NORMAL BREATHING PATTERN. absent: Rales, Rhonchi, Wheezes - Cardiovascular Exam Cardiovascular Exam: REGULAR RHYTHM, +S1, +S2. absent: Gallop, Rubs, Systolic Murmur - GI/Abdominal Exam GI & Abdominal Exam: Soft. absent: Distended, Tenderness - Extremities Exam Extremities exam: Positive for: pedal edema. Negative for: tenderness - Expanded Neurological Exam Expanded Neuro motor strength exam: Left Upper Extremity: 5, Right Upper Extremity: 5, Left Lower Extremity: 5, Right Lower Extremity: 5 Results - Vital Signs Recent Vital Signs: Last Vital Signs Temp 98.1 F 07/23/18 07:00 Pulse 95 H 07/23/18 07:00 Resp 20 07/23/18 07:00 BP 177/106 H 07/23/18 07:00 Pulse Ox 97 07/23/18 07:00 - Labs Result Diagrams: 07/23/18 07:20 07/23/18 07:20 Labs: Laboratory Results - last 24 hr 07/22/18 07/22/18 07/23/18 17:57 23:18 06:32 WBC RBC Hgb Hct MCV MCH MCHC RDW Plt Count MPV Neut % (Auto) Lymph % (Auto) [place] % (Auto) Eos % (Auto) Baso % (Auto) Neut # (Auto) Lymph # (Auto) [place] # (Auto) Eos # (Auto) Baso # (Auto) PT INR APTT Sodium Potassium Chloride Carbon Dioxide Anion Gap BUN Creatinine Est GFR ( Amer) Est GFR (Non-Af Amer) POC Glucose (mg/dL) 205 H 152 H 158 H Random Glucose Calcium Phosphorus Magnesium Total Bilirubin AST ALT Alkaline Phosphatase Total Protein Albumin Globulin Albumin/Globulin Ratio Blood Type Antibody Screen 07/23/18 07/23/18 07/23/18 07:20 07:20 07:20 WBC 9.5 RBC 4.21 Hgb 12.5 Hct 37.5 MCV 89.0 MCH 29.7 MCHC 33.4 RDW 13.5 Plt Count 215 MPV 9.9 Neut % (Auto) 60.5 Lymph % (Auto) 27.3 [place] % (Auto) 9.3 Eos % (Auto) 2.1 Baso % (Auto) 0.8 Neut # (Auto) 5.8 Lymph # (Auto) 2.6 [place] # (Auto) 0.9 H Eos # (Auto) 0.2 Baso # (Auto) 0.1 PT 11.8 INR 1.1 APTT 32 Sodium 140 Potassium 3.9 Chloride 103 Carbon Dioxide 28 Anion Gap 14 BUN 8 Creatinine 0.5 L Est GFR ( Amer) > 60 Est GFR (Non-Af Amer) > 60 POC Glucose (mg/dL) Random Glucose 167 H Calcium 8.9 Phosphorus 3.4 Magnesium 1.1 L Total Bilirubin 0.5 AST 15 ALT 22 Alkaline Phosphatase 86 Total Protein 6.9 Albumin 3.5 Globulin 3.4 Albumin/Globulin Ratio 1.0 Blood Type Antibody Screen 07/23/18 07/23/18 07:20 15:38 WBC RBC Hgb Hct MCV MCH MCHC RDW Plt Count MPV Neut % (Auto) Lymph % (Auto) [place] % (Auto) Eos % (Auto) Baso % (Auto) Neut # (Auto) Lymph # (Auto) [place] # (Auto) Eos # (Auto) Baso # (Auto) PT INR APTT Sodium Potassium Chloride Carbon Dioxide Anion Gap BUN Creatinine Est GFR ( Amer) Est GFR (Non-Af Amer) POC Glucose (mg/dL) 257 H Random Glucose Calcium Phosphorus Magnesium Total Bilirubin AST ALT Alkaline Phosphatase Total Protein Albumin Globulin Albumin/Globulin Ratio Blood Type O POSITIVE Antibody Screen Negative Assessment & Plan - Assessment and Plan (Free Text) Assessment: 73yo F with PMH of HTN and DM presenting to ED with LUE weakness and slurred speech, was code stroke. Pt is s/p R carotid endarterectomy w/ leydi patch angioplasty 07/23, admitted to ICU for further monitoring. Plan: Neuro - AAOx3 - CT head 07/17: no acute intracranial pathology - MRI brain 07/18: small acute/subacute subcortical and cortical infarct changes in R post temporal/parietal watershed zone and R post frontal/parietal zone. No hemorrhage - neuro checks q3h - Neuro consulted, Dr. Tiff walters appreciated Cardiovascular - s/p R carotid endarectomy 07/23 - h/o HTN - ECHO: nl LV function, EF 65-70% - Carotid US: R ICA 70-95% stenosis. L normal - CT angio: heavy calcified atherosclerotic plaques in prox R internal carotid artery. - ASA 81 PO daily - Plavix 75mg daily - Zetia 10mg PO HS - Crestor 10mg PO HS - nitro drip @25 mcg/min - lisinopril 20mg PO daily - maintain SBP between 120-180 - Vascular Sx consulted, Dr. Mal walters appreciated Pulm - maintain SpO2 >92% GI - no active issues Renal - no active issues Heme - ASA 81 PO daily - Plavix 75mg daily ID - no active issues Endo - h/o DM - glipizide 10mg PO BID - insulin sliding scale - metformin 1g BID - accuchecks ACHS PPx DVT: SCDs Diabetic Diet Case reviewed with Dr. Martinez.
[2018-07-23] MEDS: Nitroglycerin 50mg in D5W 50 MG/250 ML BOTTLE IV SCH (16:52)
[2018-07-23] MEDS: Magnesium Sulfate 1 gm in D5W 1 GM/100 ML BAG IVPB SCH ×9 (19:00→21:16)
--- NOTE | 2018-07-23 19:44 | CP.PCM.PN ---
Subjective - Date & Time of Evaluation Date of Evaluation: 07/23/18 Time of Evaluation: 19:43 - Subjective Subjective: Patient is status post right carotid endarterectomy. Patient is postoperative with pain Vital signs are stable. Continue present Intensive Care Unit management Objective - Vital Signs/Intake and Output Vital Signs (last 24 hours): Temp Pulse Resp BP Pulse Ox 98.6 F 95 H 20 157/70 H 99 07/23/18 18:00 07/23/18 18:28 07/23/18 18:28 07/23/18 18:28 07/23/18 18:28 Intake and Output: 07/23/18 07/23/18 11:59 23:59 Intake Total 1800 307.5 Output Total 20 Balance 1800 287.5 - Medications Medications: Current Medications Acetaminophen (Tylenol 325mg Tab) 650 mg PO Q4 PRN PRN Reason: Headache Last Admin: 07/22/18 21:54 Dose: 650 mg Aspirin (Ecotrin) 81 mg PO DAILY [facility] Last Admin: 07/23/18 10:00 Dose: Not Given Clopidogrel Bisulfate (Plavix) 75 mg PO DAILY [facility] Last Admin: 07/23/18 11:00 Dose: Not Given Ezetimibe (Zetia) 10 mg PO HS [facility] Last Admin: 07/22/18 21:54 Dose: 10 mg Enoxaparin Sodium (Lovenox) 40 mg SC DAILY [facility] Glipizide (Glucotrol Xl) 10 mg PO BID [facility] Last Admin: 07/23/18 17:00 Dose: Not Given Home Med (Linagliptin [Tradjenta]) 5 mg PO DAILY [facility] Nitroglycerin/Dextrose (Nitroglycerin 50 Mg/250 Ml D5w) 50 mg in 250 mls @ 7.5 mls/hr IV .Q24H [facility]; Protocol Last Admin: 07/23/18 16:52 Dose: 7.5 mls Magnesium Sulfate/Dextrose (Magnesium Sulfate 1 Gm/100 Ml D5w) 1 gm in 100 mls @ 300 mls/hr IVPB Q30M [facility] Stop: 07/23/18 19:49 Last Admin: 07/23/18 19:05 Dose: 300 mls/hr Insulin Human Regular (Novolin R) 0 unit SC ACHS [facility]; Protocol Last Admin: 07/23/18 15:45 Dose: 4 unit Lisinopril (Zestril) 20 mg PO DAILY [facility] Last Admin: 07/23/18 10:00 Dose: Not Given Metformin HCl (Glucophage) 1,000 mg PO BIDCC [facility] Last Admin: 07/23/18 17:00 Dose: Not Given Rosuvastatin Calcium (Crestor) 10 mg PO HS [facility] Last Admin: 07/22/18 21:54 Dose: 10 mg - Labs Labs: 07/23/18 07:20 07/23/18 07:20 PT 11.8 SECONDS (9.7-12.2) 07/23/18 07:20 INR 1.1 07/23/18 07:20 APTT 32 SECONDS (21-34) 07/23/18 07:20
--- NOTE | 2018-07-24 01:33 | OP ---
PROCEDURE DATE: 07/23/2018 PREOPERATIVE DIAGNOSIS: Transient ischemic attack. PROCEDURE CARRIED OUT: Right carotid endarterectomy. SURGEON: Lukas Resendez Jr., MD [employer]AND[employer]APE [employer]ARD[employer] LABORER: Eric Lanza DO ANESTHESIOLOGIST: Monique Griffin CRNA INDICATION FOR PROCEDURE: A 73-year-old woman with high-grade right carotid artery stenosis with previous left hemispheric stroke. OPERATIVE FINDINGS: 1. There was fresh thrombus on the atheroma at the internal carotid artery. 2. There was abandoned carotid artery above the area of the endarterectomy. 3. At the end of the procedure, the patient is alert, awake, and moving all four extremities. DESCRIPTION OF PROCEDURE: The patient was given general anesthesia and intravenous antibiotics. Venodyne boots were applied. Incision was made in the neck, exposing the common internal and external carotid arteries. Exposure of the distal portion of the internal carotid artery was somewhat difficult in order to expose it all the way up, identified the hypoglossal nerve. I changed the primary retraction, gave heparin, clamped the vessels, inserted a [place] shunt, and then carried out the standard endarterectomy, which was down to the internal carotid artery. After this had been done, we placed tacking sutures distally. We placed a bovine pericardial patch into position and sutured in place. We removed the shunt at the end of the procedure and closed the neck wound. BLOOD LOSS FOR THE PROCEDURE: 200 mL. OPERATION CARRIED OUT: Right carotid endarterectomy. Lukas Resendez Jr., MD
[2018-07-24 07:01] LABS: BASO # 0.1 K/uL (0.0-0.2); BASO % 0.6 % (0.0-2.0); EOS # 0.1 K/uL (0.0-0.7); EOS % 1.2 % (0.0-4.0); HEMOGLOBIN 11.1 g/dL (11.0-16.0); LYMPH # 2.3 K/uL (1.0-4.3); LYMPH % 21.1 % (20.0-40.0); MEAN CELL VOLUME 87.4 fL (81.0-99.0); MEAN CORPUSCULAR HEMOGLOBIN 27.9 pg (27.0-31.0); MEAN PLATELET VOLUME 10.3 fL (7.2-11.7); MONO # 1.4 K/uL (0.0-0.8); MONO % 12.3 % (0.0-10.0); NEUT # 7.2 K/uL (1.8-7.0); NEUT % 64.8 % (50.0-75.0); RBC 3.98 Mil/uL (3.80-5.20); RED CELL DISTRIBUTION WIDTH 13.5 % (11.5-14.5); WHITE BLOOD COUNT 11.1 K/uL (4.8-10.8)
[2018-07-24 07:40] LABS: ALB/GLOB RATIO 1.1 (1.0-2.1); ALBUMIN 3.2 g/dL (3.5-5.0); ALT/SGPT 22 U/L (9-52); AST/SGOT 14 U/L (14-36); BLOOD UREA NITROGEN 9 mg/dL (7-17); CALCIUM 8.3 mg/dl (8.6-10.4); GFR NON-AFRICAN AMERICAN > 60
[2018-07-24] MEDS: (Novolin R) Insulin Human Regular 100 units/ml vial SC SCH ×4 (08:00→22:07)
--- NOTE | 2018-07-24 09:30 | CP.PCM.PN ---
Subjective - Date & Time of Evaluation Date of Evaluation: 07/24/18 Time of Evaluation: 09:28 - Subjective Subjective: Vascular Surgery Progress Note for Dr. Resendez This 73F was seen and examined this Am at bedside no acute events overnight. She is currently lamont nitro drip for BP control. She has no new nurological deficits. She only complains of appropriate post operative pain. Objective - Vital Signs/Intake and Output Vital Signs (last 24 hours): Temp Pulse Resp BP Pulse Ox 97.9 F 89 19 144/64 99 07/24/18 04:00 07/24/18 07:10 07/24/18 07:10 07/24/18 06:39 07/24/18 07:10 Intake and Output: 07/24/18 07/24/18 06:59 18:59 Intake Total 461.5 6 Output Total 9 Balance 452.5 6 - Medications Medications: Current Medications Acetaminophen (Tylenol 325mg Tab) 650 mg PO Q4 PRN PRN Reason: Headache Last Admin: 07/24/18 05:40 Dose: 650 mg Aspirin (Ecotrin) 81 mg PO DAILY [facility] Last Admin: 07/23/18 10:00 Dose: Not Given Clopidogrel Bisulfate (Plavix) 75 mg PO DAILY [facility] Last Admin: 07/23/18 11:00 Dose: Not Given Ezetimibe (Zetia) 10 mg PO HS [facility] Last Admin: 07/23/18 21:46 Dose: 10 mg Enoxaparin Sodium (Lovenox) 40 mg SC DAILY [facility] Glipizide (Glucotrol Xl) 10 mg PO BID [facility] Last Admin: 07/23/18 17:00 Dose: Not Given Home Med (Linagliptin [Tradjenta]) 5 mg PO DAILY [facility] Nitroglycerin/Dextrose (Nitroglycerin 50 Mg/250 Ml D5w) 50 mg in 250 mls @ 7.5 mls/hr IV .Q24H [facility]; Protocol Last Titration: 07/24/18 07:35 Dose: 10 mcg/min, 3 mls/hr Magnesium Sulfate/Dextrose (Magnesium Sulfate 1 Gm/100 Ml D5w) 1 gm in 100 mls @ 200 mls/hr IVPB Q30M [facility] Stop: 07/24/18 10:29 Insulin Human Regular (Novolin R) 0 unit SC ACHS [facility]; Protocol Last Admin: 07/24/18 08:00 Dose: 2 unit Lisinopril (Zestril) 20 mg PO DAILY [facility] Last Admin: 07/23/18 10:00 Dose: Not Given Metformin HCl (Glucophage) 1,000 mg PO BIDCC [facility] Last Admin: 07/23/18 17:00 Dose: Not Given Rosuvastatin Calcium (Crestor) 10 mg PO HS [facility] Last Admin: 07/23/18 21:45 Dose: 10 mg - Labs Labs: 07/24/18 06:56 07/24/18 06:56 PT 11.8 SECONDS (9.7-12.2) 07/23/18 07:20 INR 1.1 07/23/18 07:20 APTT 32 SECONDS (21-34) 07/23/18 07:20 - Constitutional Appears: Non-toxic, No Acute Distress - Head Exam Head Exam: ATRAUMATIC, NORMOCEPHALIC - Eye Exam Eye Exam: EOMI, Normal appearance - ENT Exam ENT Exam: Mucous Membranes Moist - Neck Exam Additional comments: dressing clean dry and intact bulb drain removed - Respiratory Exam Respiratory Exam: NORMAL BREATHING PATTERN - Cardiovascular Exam Cardiovascular Exam: +S1, +S2 - GI/Abdominal Exam GI & Abdominal Exam: Soft. absent: Firm, Guarding, Rigid, Tenderness - Neurological Exam Neurological Exam: Alert, Awake - Psychiatric Exam Psychiatric exam: Normal Affect, Normal Mood - Skin Skin Exam: Dry, Intact Assessment and Plan - Assessment and Plan (Free Text) Assessment: 73F POD#1 s/p Right CEA Neuro checks Keep BP under 180 Regular diet Pain control D/W Dr. Mal Lanza PGY3
[2018-07-24] MEDS: Magnesium Sulfate 1 gm in D5W 1 GM/100 ML BAG IVPB SCH ×2 (10:10→10:38)
--- NOTE | 2018-07-24 10:44 | CP.PCM.PN ---
Subjective - Date & Time of Evaluation Date of Evaluation: 07/24/18 Time of Evaluation: 10:36 - Subjective Subjective: Neuro Follow-Up Note: Mrs. Styles was evaluated this morning in ICU. She was OOB to chair; family at bedside. She complains of pain to the Right CEA site (she is POD #1), which I explained to her is expected. She reports still having a mild headache, which she had last week as well, however it is improving. She also reports that weakness to her left arm/hand is improving. Denies dizziness, chest pain, sob, abd pain, n/v/d. Chart reviewed; no acute overnight events. Objective - Vital Signs/Intake and Output Vital Signs (last 24 hours): Temp Pulse Resp BP Pulse Ox 97.9 F 89 19 144/64 99 07/24/18 04:00 07/24/18 07:10 07/24/18 07:10 07/24/18 06:39 07/24/18 07:10 Intake and Output: 07/24/18 07/24/18 06:59 18:59 Intake Total 461.5 6 Output Total 9 Balance 452.5 6 - Medications Medications: Current Medications Acetaminophen (Tylenol 325mg Tab) 650 mg PO Q4 PRN PRN Reason: Headache Last Admin: 07/24/18 05:40 Dose: 650 mg Aspirin (Ecotrin) 81 mg PO DAILY [facility] Last Admin: 07/23/18 10:00 Dose: Not Given Clopidogrel Bisulfate (Plavix) 75 mg PO DAILY [facility] Last Admin: 07/23/18 11:00 Dose: Not Given Ezetimibe (Zetia) 10 mg PO HS [facility] Last Admin: 07/23/18 21:46 Dose: 10 mg Enoxaparin Sodium (Lovenox) 40 mg SC DAILY [facility] Glipizide (Glucotrol Xl) 10 mg PO BID [facility] Last Admin: 07/23/18 17:00 Dose: Not Given Home Med (Linagliptin [Tradjenta]) 5 mg PO DAILY [facility] Nitroglycerin/Dextrose (Nitroglycerin 50 Mg/250 Ml D5w) 50 mg in 250 mls @ 7.5 mls/hr IV .Q24H [facility]; Protocol Last Titration: 07/24/18 07:35 Dose: 10 mcg/min, 3 mls/hr Insulin Human Regular (Novolin R) 0 unit SC ACHS [facility]; Protocol Last Admin: 07/24/18 08:00 Dose: 2 unit Lisinopril (Zestril) 20 mg PO DAILY [facility] Last Admin: 07/23/18 10:00 Dose: Not Given Metformin HCl (Glucophage) 1,000 mg PO BIDCC [facility] Last Admin: 07/23/18 17:00 Dose: Not Given Rosuvastatin Calcium (Crestor) 10 mg PO HS [facility] Last Admin: 07/23/18 21:45 Dose: 10 mg - Labs Labs: 07/24/18 06:56 07/24/18 06:56 PT 11.8 SECONDS (9.7-12.2) 07/23/18 07:20 INR 1.1 07/23/18 07:20 APTT 32 SECONDS (21-34) 07/23/18 07:20 - Constitutional Appears: Well, Non-toxic, No Acute Distress - Head Exam Head Exam: ATRAUMATIC, NORMAL INSPECTION, NORMOCEPHALIC - Eye Exam Eye Exam: EOMI, Normal appearance Pupil Exam: NORMAL ACCOMODATION, PERRL - Neck Exam Neck Exam: absent: Full ROM, Normal Inspection Additional comments: post- Right CEA; dressing noted intact and dry to surgical site. - Respiratory Exam Respiratory Exam: NORMAL BREATHING PATTERN - Cardiovascular Exam Cardiovascular Exam: REGULAR RHYTHM - Extremities Exam Extremities Exam: Full ROM, Normal Inspection. absent: Calf Tenderness, Pedal Edema - Neurological Exam Neurological Exam: Alert, Awake, Oriented x3, Reflexes Normal Neuro motor strength exam: Left Upper Extremity: 3 (wheat buyer 3/5), Right Upper Extremity: 4 (wheat buyer 4/5), Left Lower Extremity: 5, Right Lower Extremity: 5 Additional comments: speech clear and fluid no facial asymmetry still has pronator drift to LUE sensation intact and equal Fine motor intact - Psychiatric Exam Psychiatric exam: Normal Affect, Normal Mood - Skin Skin Exam: Normal Color (post- Right CEA surgical site noted with dressing intact and dry) Assessment and Plan - Assessment and Plan (Free Text) Assessment: A/P: Mrs. Styles is admitted for a CVA (acute-subacute subcortical and cortical infarct changes seen in the right posterior temporoparietal watershed zone and superiorly in the right posterior frontoparietal region near the vertex) and was found to have severe Right ICA stenosis. She has been downgraded from ICU to med-surg this morning. Imaging: -MRI Brain (07/18/18): There are small acute-subacute subcortical and cortical infarct changes seen in the right posterior temporoparietal watershed zone and superiorly in the right posterior frontoparietal region near the vertex. There also appears to be some minimal early cortical surface enhancement along these infarct changes. No acute intracranial hemorrhage. Mild chronic white matter ischemic changes with suspected minor chronic brainstem ischemic changes as well. -CT Head (07/17/18): No acute intracranial pathology identified. -CTA head and neck (07/18/18): 1. Heavy calcified and noncalcified atherosclerotic plaques in the proximal right internal carotid artery. Severe greater than 70% hemodynamically significant stenosis in the proximal right internal carotid artery. 2. No evidence of significant stenosis in the left internal carotid artery. 3. Patent bilateral vertebral arteries. The right vertebral artery is hypoplastic, an anatomic variant. -ECHO done: normal LVEF -POD #1: Right CEA with vascular surgery. -Continue BP control -Continue ASA and Plavix -Continue DVT prophylaxis -Continue PT/OT/SL -We will continue to follow the pt. -Please notify neuro team of any acute changes in condition. Discussed with Dr. Nam
[2018-07-24] MEDS: GlipiZIDE 10 mg SR Tab PO SCH ×2 (11:05→17:07)
[2018-07-24] MEDS: Enoxaparin 40 mg Syringe SC SCH (11:09)
--- NOTE | 2018-07-24 11:35 | CP.CCUPN ---
CCU Subjective - Physician Review Subjective (Free Text): 07/24/18 11:29 Eleni Hoyt PGY1 Progress Note for Dr. Singer Pt was examined at bedside this morning. She reports mild pain in the neck at the surgical site. She also reports mild abdominal pain. She reports constipation since her hospital stay. She says she is able to tolerate liquids at this time. She denies chest pain, shortness of breath, nausea, vomiting, dysuria. Pt is deemed stable for transfer to med/surg. CCU Objective - Vital Signs / Intake & Output Intake and Output (Last 8hrs): Intake & Output 07/23/18 07/24/18 07/24/18 22:59 06:59 14:59 Intake Total 554.0 79 6 Output Total 30 4 Balance 524.0 75 6 Weight 229 lb Intake: IV 107.5 37 3 Intake, IV Amount 276.5 42 3 Left Forearm 76.5 42 3 Left Proximal Port 200 Forearm Oral 170 Output: Drainage 30 4 Right Neck 10 4 Urine/Stool Mix 0 Other: # Voids Urine, Voided 450 # Bowel Movements 0 - Medications Active Medications: Active Medications Generic Name Dose Route Start Last Admin Trade Name Freq PRN Reason Stop Dose Admin Acetaminophen 650 mg 07/17/18 21:01 07/24/18 11:05 Tylenol 325mg Tab PO 650 mg Q4 PRN Administration Headache Aspirin 81 mg 07/18/18 10:45 07/24/18 11:22 Ecotrin PO Not Given DAILY DAMIEN Clopidogrel Bisulfate 75 mg 07/18/18 11:15 07/24/18 11:05 Plavix PO 75 mg DAILY DAMIEN Administration Ezetimibe 10 mg 07/21/18 12:45 07/23/18 21:46 Zetia PO 10 mg HS DAMIEN Administration Enoxaparin Sodium 40 mg 07/24/18 10:00 07/24/18 11:09 Lovenox SC 40 mg DAILY DAMIEN Administration Glipizide 10 mg 07/18/18 10:00 07/24/18 11:05 Glucotrol Xl PO 10 mg BID DAMIEN Administration Home Med 5 mg 07/18/18 10:00 Linagliptin [Tradjenta] PO DAILY DAMIEN Nitroglycerin/Dextrose 50 mg in 250 mls @ 7.5 mls/hr 07/23/18 16:15 12/11/18 07:35 Nitroglycerin 50 Mg/250 Ml D5w IV 10 mcg/min .Q24H DAMIEN 3 mls/hr Titration Protocol 25 MCG/MIN Insulin Human Regular 0 unit 07/17/18 22:00 07/24/18 08:00 Novolin R SC 2 unit ACHS DAMIEN Administration Protocol Lisinopril 20 mg 07/18/18 14:45 07/24/18 11:13 Zestril PO 20 mg DAILY DAMIEN Administration Metformin HCl 1,000 mg 07/18/18 10:00 07/24/18 11:07 Glucophage PO 1,000 mg BIDCC DAMIEN Administration Rosuvastatin Calcium 10 mg 07/17/18 22:00 07/23/18 21:45 Crestor PO 10 mg HS DAMIEN Administration - Patient Studies Lab Studies: Lab Studies 07/24/18 07/24/18 07/24/18 Range/Units 07:21 06:56 06:56 WBC 11.1 H (4.8-10.8) K/uL RBC 3.98 (3.80-5.20) Mil/uL Hgb 11.1 (11.0-16.0) g/dL Hct 34.8 (34.0-47.0) % MCV 87.4 (81.0-99.0) fL MCH 27.9 (27.0-31.0) pg MCHC 32.0 L (33.0-37.0) g/dL RDW 13.5 (11.5-14.5) % Plt Count 210 (130-400) K/uL MPV 10.3 (7.2-11.7) fL Neut % (Auto) 64.8 (50.0-75.0) % Lymph % (Auto) 21.1 (20.0-40.0) % [place] % (Auto) 12.3 H (0.0-10.0) % Eos % (Auto) 1.2 (0.0-4.0) % Baso % (Auto) 0.6 (0.0-2.0) % Neut # (Auto) 7.2 H (1.8-7.0) K/uL Lymph # (Auto) 2.3 (1.0-4.3) K/uL [place] # (Auto) 1.4 H (0.0-0.8) K/uL Eos # (Auto) 0.1 (0.0-0.7) K/uL Baso # (Auto) 0.1 (0.0-0.2) K/uL Sodium 137 (132-148) mmol/L Potassium 3.7 (3.6-5.2) mmol/L Chloride 100 (98-107) mmol/L Carbon Dioxide 28 (22-30) mmol/L Anion Gap 12 (10-20) BUN 9 (7-17) mg/dL Creatinine 0.5 L (0.7-1.2) mg/dL Est GFR ( Amer) > 60 Est GFR (Non-Af Amer) > 60 POC Glucose (mg/dL) 194 H (65-110) mg/dL Random Glucose 232 H (65-105) mg/dL Calcium 8.3 L (8.6-10.4) mg/dl Phosphorus 3.7 (2.5-4.5) mg/dL Magnesium 1.5 L (1.6-2.3) mg/dL Total Bilirubin 0.4 (0.2-1.3) mg/dL AST 14 (14-36) U/L ALT 22 (9-52) U/L Alkaline Phosphatase 75 (38-126) U/L Total Protein 6.2 L (6.3-8.3) g/dL Albumin 3.2 L (3.5-5.0) g/dL Globulin 3.0 (2.2-3.9) gm/dL Albumin/Globulin Ratio 1.1 (1.0-2.1) 07/23/18 07/23/18 07/23/18 Range/Units 21:03 15:38 06:32 WBC (4.8-10.8) K/uL RBC (3.80-5.20) Mil/uL Hgb (11.0-16.0) g/dL Hct (34.0-47.0) % MCV (81.0-99.0) fL MCH (27.0-31.0) pg MCHC (33.0-37.0) g/dL RDW (11.5-14.5) % Plt Count (130-400) K/uL MPV (7.2-11.7) fL Neut % (Auto) (50.0-75.0) % Lymph % (Auto) (20.0-40.0) % [place] % (Auto) (0.0-10.0) % Eos % (Auto) (0.0-4.0) % Baso % (Auto) (0.0-2.0) % Neut # (Auto) (1.8-7.0) K/uL Lymph # (Auto) (1.0-4.3) K/uL [place] # (Auto) (0.0-0.8) K/uL Eos # (Auto) (0.0-0.7) K/uL Baso # (Auto) (0.0-0.2) K/uL Sodium (132-148) mmol/L Potassium (3.6-5.2) mmol/L Chloride (98-107) mmol/L Carbon Dioxide (22-30) mmol/L Anion Gap (10-20) BUN (7-17) mg/dL Creatinine (0.7-1.2) mg/dL Est GFR ( Amer) Est GFR (Non-Af Amer) POC Glucose (mg/dL) 243 H 257 H 158 H (65-110) mg/dL Random Glucose (65-105) mg/dL Calcium (8.6-10.4) mg/dl Phosphorus (2.5-4.5) mg/dL Magnesium (1.6-2.3) mg/dL Total Bilirubin (0.2-1.3) mg/dL AST (14-36) U/L ALT (9-52) U/L Alkaline Phosphatase (38-126) U/L Total Protein (6.3-8.3) g/dL Albumin (3.5-5.0) g/dL Globulin (2.2-3.9) gm/dL Albumin/Globulin Ratio (1.0-2.1) Laboratory Results - last 24 hr 07/23/18 07/23/18 07/23/18 06:32 15:38 21:03 WBC RBC Hgb Hct MCV MCH MCHC RDW Plt Count MPV Neut % (Auto) Lymph % (Auto) [place] % (Auto) Eos % (Auto) Baso % (Auto) Neut # (Auto) Lymph # (Auto) [place] # (Auto) Eos # (Auto) Baso # (Auto) Sodium Potassium Chloride Carbon Dioxide Anion Gap BUN Creatinine Est GFR ( Amer) Est GFR (Non-Af Amer) POC Glucose (mg/dL) 158 H 257 H 243 H Random Glucose Calcium Phosphorus Magnesium Total Bilirubin AST ALT Alkaline Phosphatase Total Protein Albumin Globulin Albumin/Globulin Ratio 07/24/18 07/24/18 07/24/18 06:56 06:56 07:21 WBC 11.1 H RBC 3.98 Hgb 11.1 Hct 34.8 MCV 87.4 MCH 27.9 MCHC 32.0 L RDW 13.5 Plt Count 210 MPV 10.3 Neut % (Auto) 64.8 Lymph % (Auto) 21.1 [place] % (Auto) 12.3 H Eos % (Auto) 1.2 Baso % (Auto) 0.6 Neut # (Auto) 7.2 H Lymph # (Auto) 2.3 [place] # (Auto) 1.4 H Eos # (Auto) 0.1 Baso # (Auto) 0.1 Sodium 137 Potassium 3.7 Chloride 100 Carbon Dioxide 28 Anion Gap 12 BUN 9 Creatinine 0.5 L Est GFR ( Amer) > 60 Est GFR (Non-Af Amer) > 60 POC Glucose (mg/dL) 194 H Random Glucose 232 H Calcium 8.3 L Phosphorus 3.7 Magnesium 1.5 L Total Bilirubin 0.4 AST 14 ALT 22 Alkaline Phosphatase 75 Total Protein 6.2 L Albumin 3.2 L Globulin 3.0 Albumin/Globulin Ratio 1.1 Fingerstick Blood Sugar Results: 194 Critical Care Progress Note - Nutrition Nutrition: Nutrition Category Date Time Status Diabetic [Consistent Carbohydrate] [DIET] Diets 07/23/18 Dinner Active
--- NOTE | 2018-07-24 14:07 | CP.PCM.PN ---
Subjective - Date & Time of Evaluation Date of Evaluation: 07/24/18 Time of Evaluation: 14:05 - Subjective Subjective: CHIEF COMPLAINTS TODAY : pain in the right neck region from the surgical wound. Constipation. ROS. HEENT : N. Resp : No cough, wheezing ,pleuritic CP ,or hemoptysis Cardio : No anginal CP, PND, orthopnea, palpitation GI : No abd.pain, n/v ,diarrhea or GI bleeding . LATH HAND : Left upper extremity numbness Musculoskel : No joint swelling , Derm : No rash Psych : Normal affect. Ext : No swelling ,calf pain PE. Pt. is alert awake in no distress. V.S As noted in the chart Head ,ear nose,throat and eyes : Normal. Neck : Supple with recent surgery of the right carotid. The wound is healing Lungs: Clear air entry. Heart : S1 & S2 normal with S4. No murmur. Abd : Soft non tender with normal bowel sounds. Neuro : Higher functions are normal and no facial nerve palsy. Left upper extremity shows mild weakness. Reflexes are normal Ext : No edema with intact pulses.Non tender calves Derm : No rashes or decubitus ulcer. LABS/RADIOLOGY: status post right carotid endarterectomy ASSESSMENT/PLAN : continue postop care. May need short-term rehab. Objective - Vital Signs/Intake and Output Vital Signs (last 24 hours): Temp Pulse Resp BP Pulse Ox 97.9 F 89 19 144/64 99 07/24/18 04:00 07/24/18 07:10 07/24/18 07:10 07/24/18 06:39 07/24/18 07:10 Intake and Output: 07/24/18 07/24/18 11:59 23:59 Intake Total 63 Output Total 4 Balance 59 - Medications Medications: Current Medications Acetaminophen (Tylenol 325mg Tab) 650 mg PO Q4 PRN PRN Reason: Headache Last Admin: 07/24/18 11:05 Dose: 650 mg Aspirin (Ecotrin) 81 mg PO DAILY [facility] Last Admin: 07/24/18 11:22 Dose: Not Given Clopidogrel Bisulfate (Plavix) 75 mg PO DAILY [facility] Last Admin: 07/24/18 11:05 Dose: 75 mg Ezetimibe (Zetia) 10 mg PO HS [facility] Last Admin: 07/23/18 21:46 Dose: 10 mg Enoxaparin Sodium (Lovenox) 40 mg SC DAILY [facility] Last Admin: 07/24/18 11:09 Dose: 40 mg Glipizide (Glucotrol Xl) 10 mg PO BID [facility] Last Admin: 07/24/18 11:05 Dose: 10 mg Home Med (Linagliptin [Tradjenta]) 5 mg PO DAILY [facility] Nitroglycerin/Dextrose (Nitroglycerin 50 Mg/250 Ml D5w) 50 mg in 250 mls @ 7.5 mls/hr IV .Q24H [facility]; Protocol Last Titration: 07/24/18 07:35 Dose: 10 mcg/min, 3 mls/hr Insulin Human Regular (Novolin R) 0 unit SC ACHS [facility]; Protocol Last Admin: 07/24/18 12:30 Dose: 4 unit Lisinopril (Zestril) 20 mg PO DAILY [facility] Last Admin: 07/24/18 11:13 Dose: 20 mg Metformin HCl (Glucophage) 1,000 mg PO BIDCC [facility] Last Admin: 07/24/18 11:07 Dose: 1,000 mg Rosuvastatin Calcium (Crestor) 10 mg PO HS [facility] Last Admin: 07/23/18 21:45 Dose: 10 mg - Labs Labs: 07/24/18 06:56 07/24/18 06:56 PT 11.8 SECONDS (9.7-12.2) 07/23/18 07:20 INR 1.1 07/23/18 07:20 APTT 32 SECONDS (21-34) 07/23/18 07:20
[2018-07-24] MEDS: Hemorrohoidal Ointment (2 oz) TOP SCH ×2 (16:30→19:30)
[2018-07-24] MEDS: Nitroglycerin 50mg in D5W 50 MG/250 ML BOTTLE IV SCH (17:07)
[2018-07-25] MEDS: Hemorrohoidal Ointment (2 oz) TOP SCH ×6 (04:10→20:00)
[2018-07-25 06:15] LABS: BASO # 0.1 K/uL (0.0-0.2); BASO % 1.3 % (0.0-2.0); EOS # 0.3 K/uL (0.0-0.7); EOS % 3.2 % (0.0-4.0); HEMOGLOBIN 11.7 g/dL (11.0-16.0); LYMPH # 2.4 K/uL (1.0-4.3); LYMPH % 23.4 % (20.0-40.0); MEAN CORPUSCULAR HEMOGLOBIN 29.9 pg (27.0-31.0); MEAN CORPUSCULAR HGB CONC 33.6 g/dL (33.0-37.0); MEAN PLATELET VOLUME 9.8 fL (7.2-11.7); MONO # 1.3 K/uL (0.0-0.8); MONO % 12.2 % (0.0-10.0); NEUT # 6.2 K/uL (1.8-7.0); NEUT % 59.9 % (50.0-75.0); NRBC % 0.1 % (0.0-2.0); RBC 3.92 Mil/uL (3.80-5.20); RED CELL DISTRIBUTION WIDTH 13.7 % (11.5-14.5); WHITE BLOOD COUNT 10.4 K/uL (4.8-10.8)
[2018-07-25 06:33] LABS: ALB/GLOB RATIO 1.1 (1.0-2.1); ALBUMIN 3.6 g/dL (3.5-5.0); ALT/SGPT 20 U/L (9-52); AST/SGOT 14 U/L (14-36); BLOOD UREA NITROGEN 5 mg/dL (7-17); CALCIUM 8.8 mg/dl (8.6-10.4); GFR NON-AFRICAN AMERICAN > 60
[2018-07-25] MEDS: (Novolin R) Insulin Human Regular 100 units/ml vial SC SCH ×4 (07:53→22:30)
[2018-07-25] MEDS: Enoxaparin 40 mg Syringe SC SCH (09:15)
[2018-07-25] MEDS: GlipiZIDE 10 mg SR Tab PO SCH ×2 (09:15→18:06)
--- NOTE | 2018-07-25 11:23 | PQF ---
PROVIDER RESPONSE TEXT: Over wt REVIEWER QUERY TEXT: Clarification of Clinical Diagnostic Findings Please clarify documentation or clinical relevance for the clinical / diagnostic findings or whether those are insignificant or unable to be further specified. Please choose the diagnosis that best describes the Patient ; ---- Overweight ---- Obese ---- Morbidly Obese ---- Other please specify The patient's Clinical Indicators include: 73 F, with Weight of 223lbs, BMI of 43.6 Query created by: Nadia Vazquez on 07/18/2018 6:20 PM Electronically signed by: Luz Marina Samaniego MD 07/25/2018 11:20 AM
--- NOTE | 2018-07-25 13:07 | CP.PCM.PN ---
Subjective - Date & Time of Evaluation Date of Evaluation: 07/25/18 Time of Evaluation: 13:03 - Subjective Subjective: Vascular Surgery Progress Note for Dr. Resendez This 73F was seen and examined this AM at bedside no acute events overnight. She has no new neurological deficits. She only complains of minimal inscsional pain. Objective - Vital Signs/Intake and Output Vital Signs (last 24 hours): Temp Pulse Resp BP Pulse Ox 98.6 F 95 H 20 167/71 H 98 07/25/18 12:00 07/25/18 10:55 07/25/18 10:55 07/25/18 10:55 07/25/18 08:00 Intake and Output: 07/25/18 07/25/18 06:59 18:59 Intake Total 600 Output Total 1400 Balance -800 - Medications Medications: Current Medications Acetaminophen (Tylenol 325mg Tab) 650 mg PO Q4 PRN PRN Reason: Headache Last Admin: 07/25/18 03:17 Dose: 650 mg Aspirin (Ecotrin) 81 mg PO DAILY [facility] Last Admin: 07/25/18 09:18 Dose: Not Given Clopidogrel Bisulfate (Plavix) 75 mg PO DAILY [facility] Last Admin: 07/25/18 09:15 Dose: 75 mg Ezetimibe (Zetia) 10 mg PO HS [facility] Last Admin: 07/24/18 22:24 Dose: 10 mg Enoxaparin Sodium (Lovenox) 40 mg SC DAILY [facility] Last Admin: 07/25/18 09:15 Dose: 40 mg Glipizide (Glucotrol Xl) 10 mg PO BID [facility] Last Admin: 07/25/18 09:15 Dose: 10 mg Home Med (Linagliptin [Tradjenta]) 5 mg PO DAILY [facility] Nitroglycerin/Dextrose (Nitroglycerin 50 Mg/250 Ml D5w) 50 mg in 250 mls @ 7.5 mls/hr IV .Q24H [facility]; Protocol Last Admin: 07/24/18 17:07 Dose: Not Given Insulin Human Regular (Novolin R) 0 unit SC [facility]; Protocol Last Admin: 07/25/18 11:45 Dose: 3 unit Lisinopril (Zestril) 20 mg PO DAILY [facility] Last Admin: 07/25/18 09:15 Dose: 20 mg [facility] Last Admin: 07/25/18 07:53 Dose: 1,000 mg Metoprolol Tartrate (Lopressor) 50 mg PO DAILY [facility] Last Admin: 07/25/18 10:54 Dose: 50 mg Multi-Ingredient Ointment (Prep-Hem) 1 ea TOP Q4H [facility] Last Admin: 07/25/18 11:47 Dose: 1 applic Rosuvastatin Calcium (Crestor) 10 mg PO HS [facility] Last Admin: 07/24/18 22:23 Dose: 10 mg - Labs Labs: 07/25/18 06:12 07/25/18 06:12 PT 11.8 SECONDS (9.7-12.2) 07/23/18 07:20 INR 1.1 07/23/18 07:20 APTT 32 SECONDS (21-34) 07/23/18 07:20 - Constitutional Appears: Non-toxic, No Acute Distress - Head Exam Head Exam: ATRAUMATIC, NORMOCEPHALIC - Eye Exam Eye Exam: EOMI, Normal appearance - ENT Exam ENT Exam: Mucous Membranes Moist - Neck Exam Additional comments: dressing clean dry and intact - Respiratory Exam Respiratory Exam: NORMAL BREATHING PATTERN - Cardiovascular Exam Cardiovascular Exam: +S1, +S2 - GI/Abdominal Exam GI & Abdominal Exam: Soft. absent: Firm, Guarding, Rigid, Tenderness - Neurological Exam Neurological Exam: Alert, Awake - Psychiatric Exam Psychiatric exam: Normal Affect, Normal Mood - Skin Skin Exam: Dry, Intact Assessment and Plan - Assessment and Plan (Free Text) Assessment: 73F POD#2 s/p Right CEA Pt clear for D/C home from surgery prospective D/W Dr. Mal Lanza PGY3
--- NOTE | 2018-07-25 14:01 | CP.PCM.PN ---
Subjective - Date & Time of Evaluation Date of Evaluation: 07/25/18 Time of Evaluation: 13:58 - Subjective Subjective: Progress note for Dr. Nam Patient was seen and examined at bedside in no acute distress. Patient was oob to chair and daughter was at bedside. Patient reports feeling well and has no complaints. ROS otherwise negative. Patient is s/p R CEA, POD#2. Objective - Vital Signs/Intake and Output Vital Signs (last 24 hours): Temp Pulse Resp BP Pulse Ox 98.6 F 95 H 20 167/71 H 98 07/25/18 12:00 07/25/18 10:55 07/25/18 10:55 07/25/18 10:55 07/25/18 08:00 Intake and Output: 07/25/18 07/25/18 06:59 18:59 Intake Total 600 Output Total 1400 Balance -800 - Medications Medications: Current Medications Acetaminophen (Tylenol 325mg Tab) 650 mg PO Q4 PRN PRN Reason: Headache Last Admin: 07/25/18 03:17 Dose: 650 mg Aspirin (Ecotrin) 81 mg PO DAILY [facility] Last Admin: 07/25/18 09:18 Dose: Not Given Clopidogrel Bisulfate (Plavix) 75 mg PO DAILY [facility] Last Admin: 07/25/18 09:15 Dose: 75 mg Ezetimibe (Zetia) 10 mg PO HS [facility] Last Admin: 07/24/18 22:24 Dose: 10 mg Enoxaparin Sodium (Lovenox) 40 mg SC DAILY [facility] Last Admin: 07/25/18 09:15 Dose: 40 mg Glipizide (Glucotrol Xl) 10 mg PO BID [facility] Last Admin: 07/25/18 09:15 Dose: 10 mg Home Med (Linagliptin [Tradjenta]) 5 mg PO DAILY [facility] Nitroglycerin/Dextrose (Nitroglycerin 50 Mg/250 Ml D5w) 50 mg in 250 mls @ 7.5 mls/hr IV .Q24H [facility]; Protocol Last Admin: 07/24/18 17:07 Dose: Not Given Insulin Human Regular (Novolin R) 0 unit SC [facility]; Protocol Last Admin: 07/25/18 11:45 Dose: 3 unit Lisinopril (Zestril) 20 mg PO DAILY [facility] Last Admin: 07/25/18 09:15 Dose: 20 mg Metformin HCl (Glucophage) 1,000 mg PO BIDCC [facility] Last Admin: 07/25/18 07:53 Dose: 1,000 mg Metoprolol Tartrate (Lopressor) 50 mg PO DAILY [facility] Last Admin: 07/25/18 10:54 Dose: 50 mg Multi-Ingredient Ointment (Prep-Hem) 1 ea TOP Q4H [facility] Last Admin: 07/25/18 11:47 Dose: 1 applic Rosuvastatin Calcium (Crestor) 10 mg PO HS [facility] Last Admin: 07/24/18 22:23 Dose: 10 mg - Labs Labs: 07/25/18 06:12 07/25/18 06:12 PT 11.8 SECONDS (9.7-12.2) 07/23/18 07:20 INR 1.1 07/23/18 07:20 APTT 32 SECONDS (21-34) 07/23/18 07:20 - Additional Findings Additional findings: - Constitutional Appears: No Acute Distress - Head Exam Head Exam: ATRAUMATIC, NORMAL INSPECTION, NORMOCEPHALIC - Eye Exam Eye Exam: EOMI, Normal appearance - Neck Exam Neck Exam: absent: Full ROM, Normal Inspection Additional comments: Dressing on right neck s/p R CEA, dry, clean, and intact - Respiratory Exam Respiratory Exam: NORMAL BREATHING PATTERN - Cardiovascular Exam Cardiovascular Exam: S1, S1 - Extremities Exam Extremities Exam: Full ROM, Normal Inspection. 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), Right Upper Extremity: 4 ([employer] supervisor 4/5), Left Lower Extremity: 5, Right Lower Extremity: 5 Additional comments: no facial asymmetry or slurred speech, sensation intact and symmetrical - Psychiatric Exam Psychiatric exam: Normal Affect, Normal Mood - Skin Skin Exam: Normal Color Assessment and Plan - Assessment and Plan (Free Text) Plan: 73 year old female admitted for a CVA (acute-subacute subcortical and cortical infarct changes seen in the right posterior temporoparietal watershed zone and superiorly in the right posterior frontoparietal region near the vertex) and was found to have severe Right ICA stenosis. Patient is s/p right CEA, POD#2. CVA - s/p right CEA, POD #2 - Vascular surgeon, Dr. Resendez - Continue Zetia, ASA and Plavix - Continue DVT prophylaxis - Continue PT/OT/SL * Per Dr. Nam, patient is stable for discharge from neurological standpoint. Please make an appointment to follow up with Dr. Nam/Dr. Matthew within 3-4 weeks of discharge. Imaging: * MRI Brain (07/18/18): There are small acute-subacute subcortical and cortical infarct changes seen in the right posterior temporoparietal watershed zone and superiorly in the right posterior frontoparietal region near the vertex. There also appears to be some minimal early cortical surface enhancement along these infarct changes. No acute intracranial hemorrhage. Mild chronic white matter ischemic changes with suspected minor chronic brainstem ischemic changes as well. * CT Head (07/17/18): No acute intracranial pathology identified. * CTA head and neck (07/18/18): 1. Heavy calcified and noncalcified atherosclerotic plaques in the proximal right internal carotid artery. Severe greater than 70% hemodynamically significant stenosis in the proximal right internal carotid artery. 2. No evidence of significant stenosis in the left internal carotid artery. 3. Patent bilateral vertebral arteries. The right vertebral artery is hypoplastic, an anatomic variant * ECHO done: normal LVEF Case discussed with Dr. Nam. Kiesha Castano, PGY2
--- NOTE | 2018-07-25 14:10 | CP.PCM.PN ---
Subjective - Date & Time of Evaluation Date of Evaluation: 07/25/18 Time of Evaluation: 14:09 - Subjective Subjective: CHIEF COMPLAINTS TODAY : Post op incisional pain ROS. HEENT : N. Resp : No cough, wheezing ,pleuritic CP ,or hemoptysis Cardio : No anginal CP, PND, orthopnea, palpitation GI : No abd.pain, n/v ,diarrhea or GI bleeding . LATHE TURNER : Left upper extremity numbness Musculoskel : No joint swelling , Derm : No rash Psych : Normal affect. Ext : No swelling ,calf pain PE. Pt. is alert awake in no distress. V.S As noted in the chart Head ,ear nose,throat and eyes : Normal. Neck : Supple with normal carotids. Lungs: Clear air entry. Heart : S1 & S2 normal with S4. No murmur. Abd : Soft non tender with normal bowel sounds. Neuro : Higher functions are normal and no facial nerve palsy. Left upper extremity shows mild weakness. Reflexes are normal Ext : No edema with intact pulses.Non tender calves Derm : No rashes or decubitus ulcer. LABS/RADIOLOGY ASSESSMENT/PLAN : s/p CEA recovering without any new neuro deficit RACHEL Objective - Vital Signs/Intake and Output Vital Signs (last 24 hours): Temp Pulse Resp BP Pulse Ox 98.6 F 95 H 20 167/71 H 98 07/25/18 12:00 07/25/18 10:55 07/25/18 10:55 07/25/18 10:55 07/25/18 08:00 Intake and Output: 07/25/18 07/25/18 11:59 23:59 Intake Total 360 Output Total 900 Balance -540 - Medications Medications: Current Medications Acetaminophen (Tylenol 325mg Tab) 650 mg PO Q4 PRN PRN Reason: Headache Last Admin: 07/25/18 03:17 Dose: 650 mg Aspirin (Ecotrin) 81 mg PO DAILY [facility] Last Admin: 07/25/18 09:18 Dose: Not Given Clopidogrel Bisulfate (Plavix) 75 mg PO DAILY [facility] Last Admin: 07/25/18 09:15 Dose: 75 mg Ezetimibe (Zetia) 10 mg PO HS [facility] Last Admin: 07/24/18 22:24 Dose: 10 mg Enoxaparin Sodium (Lovenox) 40 mg SC DAILY [facility] Last Admin: 07/25/18 09:15 Dose: 40 mg Glipizide (Glucotrol Xl) 10 mg PO BID [facility] Last Admin: 07/25/18 09:15 Dose: 10 mg Home Med (Linagliptin [Tradjenta]) 5 mg PO DAILY [facility] Nitroglycerin/Dextrose (Nitroglycerin 50 Mg/250 Ml D5w) 50 mg in 250 mls @ 7.5 mls/hr IV .Q24H [facility]; Protocol Last Admin: 07/24/18 17:07 Dose: Not Given Insulin Human Regular (Novolin R) 0 unit SC ACHS [facility]; Protocol Last Admin: 07/25/18 11:45 Dose: 3 unit Lisinopril (Zestril) 20 mg PO DAILY [facility] Last Admin: 07/25/18 09:15 Dose: 20 mg Metformin HCl (Glucophage) 1,000 mg PO BIDCC [facility] Last Admin: 07/25/18 07:53 Dose: 1,000 mg Metoprolol Tartrate (Lopressor) 50 mg PO DAILY [facility] Last Admin: 07/25/18 10:54 Dose: 50 mg Multi-Ingredient Ointment (Prep-Hem) 1 ea TOP Q4H [facility] Last Admin: 07/25/18 11:47 Dose: 1 applic Rosuvastatin Calcium (Crestor) 10 mg PO HS [facility] Last Admin: 07/24/18 22:23 Dose: 10 mg - Labs Labs: 07/25/18 06:12 07/25/18 06:12 PT 11.8 SECONDS (9.7-12.2) 07/23/18 07:20 INR 1.1 07/23/18 07:20 APTT 32 SECONDS (21-34) 07/23/18 07:20
[2018-07-25] MEDS: Nitroglycerin 50mg in D5W 50 MG/250 ML BOTTLE IV SCH (17:20)
[2018-07-25] MEDS: guaiFENesin DM 200 mg-20 mg/10 ml UD PO SCH ×2 (18:31→21:57)
[2018-07-26] MEDS: Hemorrohoidal Ointment (2 oz) TOP SCH ×5 (04:00→16:22)
[2018-07-26 06:18] LABS: BASO # 0.1 K/uL (0.0-0.2); EOS # 0.3 K/uL (0.0-0.7); EOS % 3.2 % (0.0-4.0); LYMPH # 2.7 K/uL (1.0-4.3); LYMPH % 25.5 % (20.0-40.0); MEAN CELL VOLUME 89.3 fL (81.0-99.0); MEAN CORPUSCULAR HEMOGLOBIN 29.5 pg (27.0-31.0); MEAN CORPUSCULAR HGB CONC 33.1 g/dL (33.0-37.0); MEAN PLATELET VOLUME 10.1 fL (7.2-11.7); MONO # 1.2 K/uL (0.0-0.8); MONO % 11.6 % (0.0-10.0); NEUT # 6.2 K/uL (1.8-7.0); NEUT % 58.7 % (50.0-75.0); NRBC % 0.1 % (0.0-2.0); RBC 4.07 Mil/uL (3.80-5.20); RED CELL DISTRIBUTION WIDTH 13.8 % (11.5-14.5); WHITE BLOOD COUNT 10.6 K/uL (4.8-10.8)
[2018-07-26 06:39] LABS: BLOOD UREA NITROGEN 8 mg/dL (7-17); GFR NON-AFRICAN AMERICAN > 60
[2018-07-26 06:40] LABS: ALB/GLOB RATIO 1.1 (1.0-2.1); ALBUMIN 3.6 g/dL (3.5-5.0); ALT/SGPT 24 U/L (9-52); AST/SGOT 16 U/L (14-36); CALCIUM 8.8 mg/dl (8.6-10.4)
[2018-07-26] MEDS: (Novolin R) Insulin Human Regular 100 units/ml vial SC SCH ×2 (08:01→13:13)
[2018-07-26] MEDS: GlipiZIDE 10 mg SR Tab PO SCH (09:20)
[2018-07-26] MEDS: guaiFENesin DM 200 mg-20 mg/10 ml UD PO SCH ×2 (09:20→16:22)
[2018-07-26] MEDS: Enoxaparin 40 mg Syringe SC SCH (09:20)
--- NOTE | 2018-07-26 09:50 | CP.PCM.PN ---
Subjective - Date & Time of Evaluation Date of Evaluation: 07/26/18 Time of Evaluation: 09:45 - Subjective Subjective: Progress note for Dr. Matthew Patient was seen and examined at bedside in no acute distress. THe patient reports feeling better, but still has some pain s/p right CEA. She otherwise feels well and currently denies having chest pain, palpitations, dyspnea, cough, nausea, vomiting, abdominal pain, headaches, acute vision changes, changes in vision. Objective - Vital Signs/Intake and Output Vital Signs (last 24 hours): Temp Pulse Resp BP Pulse Ox 98.7 F 89 18 160/71 H 97 07/26/18 00:00 07/25/18 18:11 07/25/18 18:11 07/26/18 00:00 07/25/18 18:11 Intake and Output: 07/26/18 07/26/18 06:59 18:59 Intake Total 240 Output Total 250 Balance -10 - Medications Medications: Current Medications Acetaminophen (Tylenol 325mg Tab) 650 mg PO Q4 PRN PRN Reason: Headache Last Admin: 07/26/18 07:48 Dose: 650 mg Aspirin (Ecotrin) 81 mg PO DAILY REPLACED BY [facility] Last Admin: 07/26/18 09:20 Dose: 81 mg Clopidogrel Bisulfate (Plavix) 75 mg PO DAILY REPLACED BY [facility] Last Admin: 07/26/18 09:20 Dose: 75 mg Ezetimibe (Zetia) 10 mg PO HS REPLACED BY [facility] Last Admin: 07/25/18 21:52 Dose: 10 mg Enoxaparin Sodium (Lovenox) 40 mg SC DAILY REPLACED BY [facility] Last Admin: 07/26/18 09:20 Dose: 40 mg Glipizide (Glucotrol Xl) 10 mg PO BID REPLACED BY [facility] Last Admin: 07/26/18 09:20 Dose: 10 mg Guaifenesin/Dextromethorphan (Robitussin Dm) 10 ml PO QID REPLACED BY [facility] Last Admin: 07/26/18 09:20 Dose: 10 ml Home Med (Linagliptin [Tradjenta]) 5 mg PO DAILY REPLACED BY [facility] Insulin Human Regular (Novolin R) 0 unit SC ACHS REPLACED BY [facility]; Protocol Last Admin: 07/26/18 08:01 Dose: 2 unit Lisinopril (Zestril) 20 mg PO DAILY REPLACED BY [facility] Last Admin: 07/26/18 09:20 Dose: 20 mg Metformin HCl (Glucophage) 1,000 mg PO BIDCC REPLACED BY [facility] Last Admin: 07/26/18 08:04 Dose: 1,000 mg Metoprolol Tartrate (Lopressor) 50 mg PO DAILY REPLACED BY [facility] Last Admin: 07/26/18 09:20 Dose: 50 mg Multi-Ingredient Ointment (Prep-Hem) 1 ea TOP Q4H REPLACED BY [facility] Last Admin: 07/26/18 08:03 Dose: 1 applic Rosuvastatin Calcium (Crestor) 10 mg PO HS REPLACED BY [facility] Last Admin: 07/25/18 21:57 Dose: 10 mg - Labs Labs: 07/26/18 06:09 07/26/18 06:09 PT 11.8 SECONDS (9.7-12.2) 07/23/18 07:20 INR 1.1 07/23/18 07:20 APTT 32 SECONDS (21-34) 07/23/18 07:20 - Additional Findings Additional findings: - Constitutional Appears: No Acute Distress - Head Exam Head Exam: ATRAUMATIC, NORMAL INSPECTION, NORMOCEPHALIC - Eye Exam Eye Exam: EOMI, Normal appearance - Neck Exam Neck Exam: absent: Full ROM, Normal Inspection Additional comments: Dressing on right neck s/p R CEA, dry, clean, and intact - Respiratory Exam Respiratory Exam: NORMAL BREATHING PATTERN - Cardiovascular Exam Cardiovascular Exam: S1, S1 - Extremities Exam Extremities Exam: Full ROM, Normal Inspection. absent: Calf Tenderness, Pedal Edema - Neurological Exam Neurological Exam: Alert, Awake, Oriented x3, Reflexes Normal Neuro motor strength exam: Left Upper Extremity: 4 (loading checker 4/5), Right Upper Extremity: 4 (loading checker 4/5), Left Lower Extremity: 5, Right Lower Extremity: 5 Additional comments: no facial asymmetry or slurred speech, sensation intact and symmetrical - Psychiatric Exam Psychiatric exam: Normal Affect, Normal Mood - Skin Skin Exam: Normal Color Assessment and Plan - Assessment and Plan (Free Text) Plan: 73 year old female admitted for a CVA (acute-subacute subcortical and cortical infarct changes seen in the right posterior temporoparietal watershed zone and superiorly in the right posterior frontoparietal region near the vertex) and was found to have severe Right ICA stenosis. Patient is s/p right CEA, POD#3. CVA - s/p right CEA, POD #3 - Vascular surgeon, Dr. Resendez - Continue Zetia, ASA and Plavix - Continue DVT prophylaxis - Continue PT/OT/SL * Patient is stable for discharge from neurological standpoint. Please make an appointment to follow up with Dr. Nam/Dr. Matthew within 3-4 weeks of discharge. Imaging: * MRI Brain (07/18/18): There are small acute-subacute subcortical and cortical infarct changes seen in the right posterior temporoparietal watershed zone and superiorly in the right posterior frontoparietal region near the vertex. There also appears to be some minimal early cortical surface enhancement along these infarct changes. No acute intracranial hemorrhage. Mild chronic white matter ischemic changes with suspected minor chronic brainstem ischemic changes as well. * CT Head (07/17/18): No acute intracranial pathology identified. * CTA head and neck (07/18/18): Heavy calcified and noncalcified atherosclerotic plaques in the proximal right internal carotid artery. Severe greater than 70% hemodynamically significant stenosis in the proximal right internal carotid artery. No evidence of significant stenosis in the left internal c arotid artery. Patent bilateral vertebral arteries. The right vertebral artery is hypoplastic, an anatomic variant * ECHO done: normal LVEF Case discussed with Dr. Matthew. Kiesha Castano, PGY2
[2018-07-26] MEDS ORDERED: Magnesium Oxide 400 mg Tab UD PO ONE (14:00)
--- NOTE | 2018-07-26 14:16 | CP.PCM.DIS ---
Provider - Provider Date of Admission: 07/17/18 15:50 Attending physician: Luz Marina Samaniego MD Consults: 07/17/18 12:14 Stroke Team Consult Stat Comment: Consulting Provider: Neurohospitalist Consulting Physician: NEUROHOSP Neurohospitalist for Consult: Demian Matthew Neurohospitalist for Consult: Rut Nam Reason for Consult: code stroke, L arm numbness 07/18/18 14:07 Vascular Surgery Routine Comment: Consulting Provider: Lukas Resendez Jr. Physician Instructions: Reason For Exam: severe carotid stenosis / cva 07/25/18 14:11 Discharge Planning [Case Management Referral] Routine Comment: Physician Instructions: RACHEL de souza Reason For Exam: Reason for Referral: Discharge Planning Time Spent in preparation of Discharge (in minutes): 36 Hospital Course - Lab Results Lab Results: Micro Results 07/24/18 00:30 Nose MRSA Culture (Admit) - Final MRSA NOT DETECTED Most Recent Lab Values WBC 10.6 K/uL (4.8-10.8) 07/26/18 06:09 RBC 4.07 Mil/uL (3.80-5.20) 07/26/18 06:09 Hgb 12.0 g/dL (11.0-16.0) 07/26/18 06:09 Hct 36.4 % (34.0-47.0) 07/26/18 06:09 MCV 89.3 fL (81.0-99.0) 07/26/18 06:09 MCH 29.5 pg (27.0-31.0) 07/26/18 06:09 MCHC 33.1 g/dL (33.0-37.0) 07/26/18 06:09 RDW 13.8 % (11.5-14.5) 07/26/18 06:09 Plt Count 214 K/uL (130-400) 07/26/18 06:09 MPV 10.1 fL (7.2-11.7) 07/26/18 06:09 Neut % (Auto) 58.7 % (50.0-75.0) 07/26/18 06:09 Lymph % (Auto) 25.5 % (20.0-40.0) 07/26/18 06:09 [place] % (Auto) 11.6 % (0.0-10.0) H 07/26/18 06:09 Eos % (Auto) 3.2 % (0.0-4.0) 07/26/18 06:09 Baso % (Auto) 1.0 % (0.0-2.0) 07/26/18 06:09 Neut # (Auto) 6.2 K/uL (1.8-7.0) 07/26/18 06:09 Lymph # (Auto) 2.7 K/uL (1.0-4.3) 07/26/18 06:09 [place] # (Auto) 1.2 K/uL (0.0-0.8) H 07/26/18 06:09 Eos # (Auto) 0.3 K/uL (0.0-0.7) 07/26/18 06:09 Baso # (Auto) 0.1 K/uL (0.0-0.2) 07/26/18 06:09 PT 11.8 SECONDS (9.7-12.2) 07/23/18 07:20 INR 1.1 07/23/18 07:20 APTT 32 SECONDS (21-34) 07/23/18 07:20 Sodium 140 mmol/L (132-148) 07/26/18 06:09 Potassium 3.8 mmol/L (3.6-5.2) 07/26/18 06:09 Chloride 103 mmol/L (98-107) 07/26/18 06:09 Carbon Dioxide 28 mmol/L (22-30) 07/26/18 06:09 Anion Gap 13 (10-20) 07/26/18 06:09 BUN 8 mg/dL (7-17) 07/26/18 06:09 Creatinine 0.4 mg/dL (0.7-1.2) L 07/26/18 06:09 Est GFR ( Amer) > 60 07/26/18 06:09 Est GFR (Non-Af Amer) > 60 07/26/18 06:09 POC Glucose (mg/dL) 187 mg/dL (65-110) H 07/26/18 07:50 Random Glucose 195 mg/dL (65-105) H 07/26/18 06:09 Hemoglobin A1c 10.5 % (4.2-6.5) H 07/17/18 12:26 Calcium 8.8 mg/dl (8.6-10.4) 07/26/18 06:09 Phosphorus 3.3 mg/dL (2.5-4.5) 07/26/18 06:09 Magnesium 1.5 mg/dL (1.6-2.3) L 07/26/18 06:09 Total Bilirubin 0.3 mg/dL (0.2-1.3) 07/26/18 06:09 AST 16 U/L (14-36) 07/26/18 06:09 ALT 24 U/L (9-52) 07/26/18 06:09 Alkaline Phosphatase 92 U/L (38-126) 07/26/18 06:09 Troponin I < 0.0120 ng/mL (0.00-0.120) 07/17/18 12:25 Total Protein 6.8 g/dL (6.3-8.3) 07/26/18 06:09 Albumin 3.6 g/dL (3.5-5.0) 07/26/18 06:09 Globulin 3.2 gm/dL (2.2-3.9) 07/26/18 06:09 Albumin/Globulin Ratio 1.1 (1.0-2.1) 07/26/18 06:09 Triglycerides 175 mg/dL (0-149) H 07/17/18 12:25 Cholesterol 219 mg/dL (0-199) H 07/17/18 12:25 LDL Cholesterol Direct 128 mg/dL (0-129) 07/17/18 12:25 HDL Cholesterol 56 mg/dL (30-70) 07/17/18 12:25 Blood Type O POSITIVE 07/23/18 07:20 Antibody Screen Negative 07/23/18 07:20 - Hospital Course Hospital Course: History of Present Illness - History of Present Illness History of Present Illness: COMPREHENSIVE HISTORY & PHYSICAL EXAM HPI 73 years or woman with history of hypertension admitted with left upper extremity weakness. Patient went to bed last night and apparently healthy status woke up this morning with unable to move her left upper extremity. Patient also has a slight slurring of the speech according to the daughter. Patient was brought to the emergency room there was a slight weakness of the left upper extremity with no other deficits. As patient had passed the window of treatment for anti- thrombolytic patient was given regular anticoagulation. CAT scan of the head did not reveal any fresh infarct or bleed. Patient been complaining of a headache for the last 3 days. Patient has multiple medications at home and takes only a few of them. Patient has a history of hypertension diabetes and also had a similar neurological deficit was admitted in the hospital and has fully recovered.Patient was admitted on the telemetry bed. Neuro workup showed MRI subacute infarct in the right subcortical region. Carotid Doppler showed more than 80% lesion in the right internal carotid artery. Patient's weakness persisted on the left upper extremity patient with a speech that improved patient still had a slight systolic hypertension which was managed with the medications. After consulting with the neurologist and the vascular surgery patient underwent a right carotid endarterectomy without any complications. Postoperative patient had a mild systolic pressure which was secondary to the pain and distress. Patient currently stable refusing the rehab and will be sent home on current by mouth medication. Patient will follow with her primary care. Discharge Exam - Head Exam Head Exam: ATRAUMATIC, NORMAL INSPECTION, NORMOCEPHALIC Discharge Plan - Follow Up Plan Condition: GUARDED Disposition: HOME/ ROUTINE
[2018-07-26 16:56] VITALS: BP 158/75; PULSE 90; RESP 17; TEMP 98.8; O2SAT 96
== END 2018-07-26 17:23 | disposition home or self-care (01) | DRG 37 ==
LOC: C.ER 11:58 → C.9E 15:50 → C.6T 18:22 → C.9I 07-23 13:05
PROVIDERS: ADMIT Internal Medicine Cardiovascular Disease; ATTEND Internal Medicine Cardiovascular Disease
PROC: 03CK0ZZ Extirpation of Matter from Right Internal Carotid Artery, Open Approach (ICD-10-PCS; principal; 2018-07-23 11:45)
DX: I65.21 Occlusion and stenosis of right carotid artery (principal); I63.9 Cerebral infarction, unspecified; E78.5 Hyperlipidemia, unspecified; I10 Essential (primary) hypertension; K59.00 Constipation, unspecified; E11.9 Type 2 diabetes mellitus without complications; R29.810 Facial weakness; G83.24 Monoplegia of upper limb affecting left nondominant side